=== PATIENT | female | born 1965 | race Caucasian/White ===

== ENCOUNTER → 2017-10-30 | Outpatient (CLI) | payer OTHER, SELFPAY | PROVIDERS: Family Provider Nurse Practitioner Family; Visit Provider Orthopaedic Surgery | DX: S52.202K Unspecified fracture of shaft of left ulna, subsequent encounter for closed fracture with nonunion (principal) | CPT/HCPCS: 73090 ==

== ENCOUNTER → 2017-12-04 13:19 | Outpatient (CLI) | payer OTHER, SELFPAY ==
--- NOTE | 2017-12-04 13:28 | MM_ITS ---
MM Dig screening mamm BI w/CAD CAD Screening ORDERING PHYSICIAN : Ganga Pires MD PATIENT AGE: 52 years GENDER: Female COMPARISON: Previous mammograms: December 2014, July 2012, December 2010, April 22, 2008 film screen mammogram INDICATION: Routine screening mammogram. Patient takes estrogen. No new complaints Family history. Grandmother with breast cancer age 80 TECHNIQUE: Standard CC and MLO images were obtained. R2 CAD reviewed. Additional axillary cc views both breast included . Areas of mild asymmetry appears stable with no significant new findings overall. RIGHT BREAST:Area of density seen on the initial cc view dissipates on subsequent axillary cc view and appears overall stable since radius studies. . LEFT BREAST:Mild asymmetry left breast.. No significant change and overall appears stable in all 3 views of the left breast are reviewed in conjunction with prior studies IMPRESSION: Stable bilateral mammogram . Moderate density breast with mild asymmetry BI-RADS Category: 2 Benign Finding(s) RECOMMENDED FOLLOW-UP: 1YR - 1 YEAR FOLLOW-UP (A letter has been sent to the patient regarding results of the study.) .
--- NOTE | 2017-12-04 13:28 | XR_ITS ---
XR forearm LT 2V HISTORY: Follow-up fracture ITS.REASON: Status post LEFT forearm ORIF ORDERING PHYSICIAN: Ganga Pires MD PATIENT AGE: 52 years COMPARISON: 10/30/2017 FINDINGS: 3 views show a bone plate stabilizing a midshaft ulnar fracture with good alignment. Fracture line is still visible anteriorly. There is overlying callus formation. IMPRESSION: Overall no change status post ORIF ulnar fracture with good alignment
== END ==
PROVIDERS: Family Provider Nurse Practitioner Family; PCP Emergency Medicine; Referring Provider Orthopaedic Surgery; Visit Provider Obstetrics & Gynecology
DX: Z12.31 Encounter for screening mammogram for malignant neoplasm of breast (principal); Z47.89 Encounter for other orthopedic aftercare
CPT/HCPCS: 73090; 77067

== ENCOUNTER → 2018-02-10 13:03 | Outpatient (CLI) | payer OTHER, SELFPAY ==
--- NOTE | 2018-02-10 13:07 | XR_ITS ---
XR forearm LT 2V HISTORY: Follow-up surgery ITS.REASON: Post op from 09/22/17 ORDERING PHYSICIAN: Gaurav García MD PATIENT AGE: 52 years COMPARISON: 12/04/2017 FINDINGS: There remains a bone plate over the mid shaft of the ulna with callus formation at the fracture site consistent with healing with normal alignment. Fracture line appears somewhat less apparent compared to the previous exam. IMPRESSION: Healing midshaft ulnar fracture status post ORIF
== END ==
PROVIDERS: Visit Provider Orthopaedic Surgery
DX: Z47.89 Encounter for other orthopedic aftercare (principal)
CPT/HCPCS: 73090

== ENCOUNTER → 2018-02-10 14:34 | Outpatient (CLI) | payer OTHER, SELFPAY ==
[2018-02-10 15:31] LABS: Free Thyroxine Index 3.4 ug/dL (5.93-13.13); T4 (Thyroxine) 10.6 ug/dl (4.7-13.3); Thyroid Stimulating Hormone 2.68 uIU/ml (0.358-3.740); Triiodothryronine (T3) Uptake 32 % (31-39)
== END ==
PROVIDERS: Visit Provider Obstetrics & Gynecology
DX: E05.90 Thyrotoxicosis, unspecified without thyrotoxic crisis or storm (principal)
CPT/HCPCS: 36415; 84436; 84443; 84479

== ENCOUNTER → 2018-02-12 14:09 | Outpatient (CLI) | payer OTHER, SELFPAY ==
[2018-02-12 14:46] LABS: Basophils # 0.1 K/mm3 (0-0.2); Basophils % 0.5 % (0.1-2.0); Eosinophils # 0.3 K/mm3 (0.0-0.4); Eosinophils % 2.7 % (0.1-12.0); Hematocrit 39.1 % (37.0-47.0); Hemoglobin 12.6 g/dL (12.2-16.2); Lymphocytes # 2.8 K/mm3 (0.7-4.5); Mean Corpuscular HGB Conc 32.1 g/dL (31.8-35.4); Mean Corpuscular Volume 93.6 fl (81-99); Monocytes # 0.5 K/mm3 (0.1-1.0); Monocytes % 4.3 % (1.7-9.3); Neutrophils % 68.4 % (37.0-80.0); Platelet Count 380 K/mm3 (142-424); Red Blood Count 4.18 M/mm3 (4.20-5.40); Red Cell Distribution Width 13.7 % (11.5-17.5); White Blood Count 11.7 K/mm3 (4.8-10.8)
[2018-02-12 15:31] LABS: C-Reactive Protein 0.9 mg/L (0.0-0.9); Free Thyroxine Index 2.9 ug/dL (5.93-13.13); T4 (Thyroxine) 9.4 ug/dl (4.7-13.3); Thyroid Stimulating Hormone 1.73 uIU/ml (0.358-3.740); Triiodothryronine (T3) Uptake 31 % (31-39)
[2018-02-12 15:48] LABS: Erythrocyte Sedimentation Rate 10 mm/hr (0-30)
[2018-02-14 19:03] LABS: Parathyroid Hormone Intact 28 pg/mL (15-65); Vitamin D 25 Hydroxy 31.8 ng/mL (30.0-100.0)
== END ==
PROVIDERS: Visit Provider Orthopaedic Surgery
DX: Z47.89 Encounter for other orthopedic aftercare (principal)
CPT/HCPCS: 36415; 82652; 83970; 84436; 84443; 84479; 85025; 85651; 86140

== ENCOUNTER → 2018-03-12 13:01 | Outpatient (CLI) | payer OTHER, SELFPAY ==
--- NOTE | 2018-03-12 13:03 | XR_ITS ---
XR DEXA axial skeleton HISTORY: ITS.REASON: screening ORDERING PHYSICIAN: Ganga Pires MD PATIENT AGE: 52 years FINDINGS: The BMD measured at the Right femoral neck is 1.200 g/cm squared with a T score of 1.2. This is considered normal according to the World Health Organization criteria. Fracture risk is low. Treatment is advised. The L1 L4 density has a T score of 1.3 which is within normal limits. IMPRESSION: Normal bone density. Recommend follow up exam march 2020
== END ==
PROVIDERS: Family Provider Nurse Practitioner Family; Visit Provider Obstetrics & Gynecology
DX: Z78.0 Asymptomatic menopausal state (principal); Z13.820 Encounter for screening for osteoporosis
CPT/HCPCS: 77080

== ENCOUNTER → 2018-04-03 09:57 | Outpatient (CLI) | payer OTHER, SELFPAY ==
--- NOTE | 2018-04-03 10:01 | XR_ITS ---
XR forearm LT 2V HISTORY: Follow-up fracture/ORIF ITS.REASON: S/P ORIF LT Forearm ORDERING PHYSICIAN: Gaurav García MD PATIENT AGE: 52 years COMPARISON: 02/10/2018 FINDINGS: There is a bone plate once again noted stabilizing a midshaft ulnar fracture with overlying callus formation and good alignment with no evidence of displacement. IMPRESSION: No change healing nondisplaced mid shaft ulnar fracture status post ORIF
== END ==
PROVIDERS: PCP Emergency Medicine; Visit Provider Orthopaedic Surgery
DX: S52.202G Unspecified fracture of shaft of left ulna, subsequent encounter for closed fracture with delayed healing (principal)
CPT/HCPCS: 73090

== ENCOUNTER → 2018-10-09 11:05 | Outpatient (CLI) | payer OTHER, SELFPAY ==
--- NOTE | 2018-10-09 11:08 | MR_ITS ---
MR knee LT wo con HISTORY: Medial left knee pain, twisting injury with pain and instability ITS.REASON: LT KNEE PAIN ORDERING PHYSICIAN: Kusum Miller MD PATIENT AGE: 52 years Comparison: 10/04/2018 TECHNIQUE: Standard multiplanar multiecho sequences are performed without contrast. FINDINGS: The cruciate ligaments are intact. The collateral ligaments, patellar tendon, and quadriceps tendon have an unremarkable appearance. There is mild generalized motion artifact on the sagittal images especially along the medial aspect of the knee limiting the diagnostic accuracy of the exam. Abnormal oblique signal intensity involves the posterior horn of the medial meniscus with linear oblique increased T2 signal consistent with a horizontal tear. This may extend into the body of the medial meniscus difficult to evaluate due to motion on the coronal images. The lateral meniscus has an unremarkable appearance. There are osteoarthritic changes of the medial compartment and patellofemoral joint with a small knee joint effusion. The patellar cartilage is preserved. Small area of increased T2 signal involves the medial aspect and proximal aspect of the medial tibial plateau consistent with small area of bone marrow edema. There is some subcutaneous edema along the medial aspect of the knee and in the prepatellar region IMPRESSION: 1. Limited study secondary to motion artifact. 2. Nondisplaced horizontal tear involves posterior horn of the medial meniscus. 3. Small knee joint effusion with osteoarthritis and small focus of bone marrow edema involving the medial and proximal tibia.
== END ==
PROVIDERS: Visit Provider Orthopaedic Surgery
DX: M25.562 Pain in left knee (principal)
CPT/HCPCS: 73721

== ENCOUNTER 2018-10-20 13:06 | Outpatient (RCR) | payer OTHER, SELFPAY | END 2018-10-20 13:10 | disposition home or self-care (01) | LOC: PT 13:06 | PROVIDERS: Visit Provider Orthopaedic Surgery | DX: M17.12 Unilateral primary osteoarthritis, left knee (principal) | CPT/HCPCS: 97163 ==

== ENCOUNTER → 2019-06-10 16:26 | Outpatient (CLI) | payer SELFPAY | PROVIDERS: Visit Provider Obstetrics & Gynecology | DX: Z12.31 Encounter for screening mammogram for malignant neoplasm of breast (principal) | CPT/HCPCS: 77067 ==

== ENCOUNTER 2020-05-15 10:46 | Emergency (ER) | payer MEDICAID, SELFPAY ==
[2020-05-15 10:47] VITALS: BP 120/85; PULSE 91; RESP 16; TEMP 36.8; O2SAT 98; BMI 31.8
--- NOTE | 2020-05-15 10:50 | HMH.EDGENADL ---
ED Disposition Clinical Impression: Urinary tract infection Qualifiers: Urinary tract infection type: acute cystitis Hematuria presence: without hematuria Qualified Code(s): N30.00 - Acute cystitis without hematuria Disposition: Home, Self-Care Condition on Discharge: Good Instructions: DI for Urinary Tract Infection (UTI), DI for Urinary Tract Infection in Children Additional Instructions: Take antibiotics as prescribed. Follow-up with your PCP in the next 2 to 3 days. If you have any fever, back pain, vomiting, or any other new, changing, worsening, or concerning symptoms, come back to the emergency department immediately. Prescriptions: Cefdinir [Omnicef 300mg Capsule] 300 mg PO BID 10 Days #20 cap Transmission Status: Received by [facility] [employer] Referrals: Lilliana Nieto [Primary Care Provider] - Time of Disposition: 12:20 - Critical Care Critical Care Time: No Attestation: On , the high probability of a clinically significant, sudden or life threatening deterioration of the following system(s) required my full and direct attention, intervention and personal management. The time I documented below is in addition to time spent performing reported procedures but includes the following listed in this critical care notation. Medical Decision Making - Medical Records Medical records reviewed: Yes: I reviewed the patient's medical records. MR Comment: 54-year-old female with a history of UTIs presents emergency department with frequency, urgency and dysuria. She arrives the ED nontoxic, hemodynamically stable, and looks well with reassuring vital signs. She has no concerning symptoms of pyelonephritis or sepsis. Tolerating p.o., exam is completely unremarkable. Likely simple cystitis. Will get a UA and reassess. On reassessment, patient remains well. She has nitrates in her urine as well as leukocyte esterase, microbiology has not yet resulted, but she likely has UTI given this and her symptoms. Patient would like to be discharged and does not want to wait on the completed results of her urinalysis. She has a prior microbiology showing E. coli. We will treat her with cefdinir and asked that she follow-up with her PCP in the next 2 days. Given strict return precautions and discharge instructions and verbalizes an understanding and agreement to the plan. Safe to discharge. - Dino Inquiry Pt receiving controlled substance: No Vital Signs: 05/15/20 10:47 05/15/20 12:27 Temperature 98.3 F 98 F Temperature Source Oral Oral Pulse Rate 78 Pulse Rate [Left Radial] 91 H Respiratory Rate 16 16 Blood Pressure 112/65 Blood Pressure [Right Arm] 120/85 Blood Pressure Mean [Right Arm] 96 Blood Pressure Position Sitting Blood Pressure Position [Right Arm] Sitting 02 Sat by Pulse Oximetry 98 Oxygen Delivery Method Room Air Room Air - Lab Data Lab Results 05/15/20 11:10: Urine Color Dk yellow, Urine Appearance Clear, Urine pH 6.5, Ur Specific [place] 1.015, Urine Protein Negative, Urine Glucose (UA) Negative, Urine Ketones Negative, Urine Blood Negative, Urine Nitrate Positive, Urine Bilirubin Negative, Urine Urobilinogen 1.0, Ur Leukocyte Esterase Trace, Urine RBC 10-20, Urine WBC 10-20, Ur Squamous Epith Cells 10-20, Amorphous Sediment 1+, Urine Bacteria 1+ Orders (Tests/Meds): ORDERS Category Date Time Status Urine Culture Stat Micro 05/15/20 11:10 Received General Adult HPI - General Stated complaint: poss uti Time Seen by Provider: 05/15/20 10:50 Source of Information: Patient - History of Present Illness HPI narrative: 54-year-old female presents emergency department with dysuria. She has had urgency and frequency for the last few days. Was trying to take Azo and cranberry juice at home and continued to have symptoms and when to come in today to be evaluated. She denies any nausea or vomiting. She denies fever chills. No back pain, chest pain. No diarrhea. Nothing makes eran
[2020-05-15 11:51] LABS: Microscopic, Urine URINE MICROSCOPIC (MICROSCOPIC)
[2020-05-15 11:52] LABS: Appearance,Urine CLEAR (Clear); Bilirubin,Urine Negative (Negative); Blood, Urine Negative (Negative); Color,Urine DK YELLOW (Yellow); Glucose,Urine (UA) Negative (Negative); Ketones,Urine Negative (Negative); Leukocyte Esterase,Urine TRACE (Negative); Nitrate,Urine POSITIVE (Negative); PH,Urine 6.5 (5.0-8.5); Protein,Urine Negative (Negative); Specific Gravity, Urine 1.015 (1.005-1.030)
[2020-05-15 12:22] LABS: Amorphous Sediment,Urine 1+ /lpf; Bacteria,Urine 1+ /lpf
[2020-05-15 12:27] VITALS: BP 112/65; PULSE 78; RESP 16; TEMP 36.6; O2SAT 98
== END 2020-05-15 12:28 | disposition home or self-care (01) ==
PROVIDERS: Emergency Provider Emergency Medicine; PCP Nurse Practitioner Acute Care
DX: N30.00 Acute cystitis without hematuria (principal); F41.8 Other specified anxiety disorders; I10 Essential (primary) hypertension; Z88.0 Allergy status to penicillin; F17.210 Nicotine dependence, cigarettes, uncomplicated
CPT/HCPCS: 81001; 87086; 87088; 87186; 99282

== ENCOUNTER → 2020-06-12 09:57 | Outpatient (CLI) | payer MEDICAID, SELFPAY ==
--- NOTE | 2020-06-12 09:57 | MM_ITS ---
PROCEDURE: MM DIG SCREENING MAMM BI W/CAD Digital Breast Tomosynthesis Included CLINICAL INDICATION: Routine Screening Mammogram There is a history of breast cancer in patient's mother diagnosed after menopause and the patient's maternal grandmother. The patient currently is on Premarin and estrogen. COMPARISON: MG DMSB DIG MAMM-SCREEN GRACE from 12/09/2014 MG [facility]BI MM Dig screening mamm BI w/CAD from 12/04/2017 MG DIG MAMM-SCREEN GRACE from 06/10/2019 TECHNIQUE: Standard CC and MLO images and 3D Tomosynthesis was obtained. R2 CAD reviewed. FINDINGS: Moderate diffuse fibroglandular densities are seen in the central portions of both breast. Again noted is slightly increased glandular elements upper-outer quadrant right breast. There is a benign-appearing calcification right breast. There is no new or suspicious lesion in either breast and no suspicious microcalcifications. IMPRESSION: Mild to moderate breast density with no suspicious lesions seen BI-RAD Category: 2 Benign Finding(s) FOLLOW-UP: 1YR 1 Year Follow-up (A letter has been sent to the patient regarding results of the study.) Dictated Dr. David Vivas MD 06/13/2020 10:18 Dr. David Arora MD in [place] 06/13/2020 10:18
[2020-06-14 19:43] LABS: HIV Screen 4th Generation wRfx Non Reactive (Non Reactive); Hepatitis B Surface Antigen Negative (Negative); Hepatitis C Antibody <0.1 s/co ratio (0.0-0.9)
[2020-07-06 09:33] LABS: Rapid Plasma Reagin Ab Titer Non Reactive
== END ==
PROVIDERS: PCP Nurse Practitioner Acute Care; Visit Provider Obstetrics & Gynecology
DX: Z12.31 Encounter for screening mammogram for malignant neoplasm of breast (principal); Z01.419 Encounter for gynecological examination (general) (routine) without abnormal findings; Z90.710 Acquired absence of both cervix and uterus; Z80.3 Family history of malignant neoplasm of breast; Z20.2 Contact with and (suspected) exposure to infections with a predominantly sexual mode of transmission; B97.7 Papillomavirus as the cause of diseases classified elsewhere; R39.89 Other symptoms and signs involving the genitourinary system
CPT/HCPCS: 36415; 77063; 77067; 86592; 86703; 87340; 87380; G0432

== ENCOUNTER → 2020-06-12 14:47 | Outpatient (CLI) | payer MEDICAID, SELFPAY | PROVIDERS: Visit Provider Obstetrics & Gynecology | DX: R39.89 Other symptoms and signs involving the genitourinary system (principal); Z20.2 Contact with and (suspected) exposure to infections with a predominantly sexual mode of transmission | CPT/HCPCS: 36415; 86592; 86703; 87340; 87380; G0432 ==

== ENCOUNTER 2020-11-21 17:03 | Emergency (ER) | payer MEDICAID, SELFPAY ==
[2020-11-21 17:13] VITALS: BP 165/73; PULSE 96; RESP 16; TEMP 36.8; O2SAT 98; BMI 29.0
--- NOTE | 2020-11-21 18:10 | XR_ITS ---
PROCEDURE: XR SHOULDER RT MIN 2V CLINICAL INDICATION: pain Bilateral shoulder pain COMPARISON: CR XR SHOULDER LT MIN 2V from 11/21/2020 FINDINGS: No fracture or dislocation. No lytic or blastic change. There is normal mineralization. There are mild osteoarthritic changes the acromioclavicular joint glenohumeral joint with mild subacromial stenosis. Other findings:None. IMPRESSION: Mild osteoarthritis of the AC joint and glenohumeral joint with mild subacromial stenosis Dictated by: Rivera Tavares MD 11/22/2020 06:43 Rivera Tavares MD in [place] 11/22/2020 06:43
--- NOTE | 2020-11-21 18:10 | XR_ITS ---
PROCEDURE: XR SHOULDER LT MIN 2V CLINICAL INDICATION: pain COMPARISON: No exams were available for comparison FINDINGS: No fracture or dislocation. No lytic or blastic change. There is normal mineralization. Mild osteoarthritis of the AC joint and glenohumeral joint with subacromial stenosis. Other findings:None. IMPRESSION: Osteoarthritis with subacromial stenosis Dictated by: Rivera Tavares MD 11/22/2020 06:44 Rivera Tavares MD in [place] 11/22/2020 06:44
--- NOTE | 2020-11-21 18:24 | HMH.EDGENADL ---
ED Disposition Clinical Impression: Arthritis, multiple joint involvement, Lyme arthritis Disposition: Home, Self-Care Condition on Discharge: Good Instructions: DI for Lyme Disease Prescriptions: Doxycycline Hyclate [Doxycycline 100mg Capsule] 100 mg PO Q12 21 Days #42 cap Transmission Status: Pending to [facility] Referrals: Lilliana Nieto [Primary Care Provider] - Dilshad Sheffield MD [Staff Physician] - - Critical Care Critical Care Time: No Attestation: On 11/21/20, the high probability of a clinically significant, sudden or life threatening deterioration of the following system(s) required my full and direct attention, intervention and personal management. The time I documented below is in addition to time spent performing reported procedures but includes the following listed in this critical care notation. Medical Decision Making - Medical Records Medical records reviewed: Yes: I reviewed the patient's medical records. - Dino Inquiry Pt receiving controlled substance: No Vital Signs: 11/21/20 17:13 11/21/20 18:55 Temperature 98.2 F Temperature Source Oral Pulse Rate [Right Brachial] 96 H 80 Respiratory Rate 16 20 Blood Pressure [Right Arm] 165/73 H 150/61 H Blood Pressure Mean [Right Arm] 103 90 Blood Pressure Source [Right Arm] Automatic Cuff Blood Pressure Position [Right Arm] Sitting 02 Sat by Pulse Oximetry 98 97 Oxygen Delivery Method Room Air - Lab Data Lab Results 11/21/20 18:44: WBC 14.5 H, RBC 4.92, Hgb 15.9, Hct 46.9, MCV 95.2, MCH 32.3 H, MCHC 33.9, RDW 13.2, Plt Count 386, MPV 8.4, Neut % (Auto) 72.9, Lymph % (Auto) 20.1, [place] % (Auto) 4.7, Eos % (Auto) 1.9, Baso % (Auto) 0.4, Neut # (Auto) 10.6 H, Lymph # (Auto) 2.9, [place] # (Auto) 0.7, Eos # (Auto) 0.3, Baso # (Auto) 0.1 11/21/20 18:44: Sodium 140, Potassium 3.9, Chloride 102, Carbon Dioxide 30, Anion Gap 11.9, BUN 15, Creatinine 1.00, Estimated Creat Clear 76, Estimated GFR 58 L, Est GFR ( Amer) 70, Glucose 103 H, Calcium 10.1, Total Bilirubin 0.4, AST 33, ALT 30, Alkaline Phosphatase 68, Troponin I < 0.01, Total Protein 8.0, Albumin 4.8, Globulin 3.2, Albumin/Globulin Ratio 1.5 Result diagrams: 11/21/20 18:44 11/21/20 18:44 Orders (Tests/Meds): ED MEDICATIONS Discontinued Medications Generic Name Dose Route Start Last Admin Trade Name Renee PRN Reason Stop Dose Admin Ketorolac Tromethamine 30 mg 11/21/20 18:10 11/21/20 18:33 Ketorolac 30mg/Ml Vial IV 11/21/20 18:11 30 mg ONCE ONE Administration ORDERS Category Date Time Status XR shoulder LT min 2V Stat Exams 11/21/20 18:10 Taken XR shoulder RT min 2V Stat Exams 11/21/20 18:10 Taken Lyme Ab/Line Blot Reflex Stat Lab 11/21/20 19:20 Received Troponin I Q3H Lab 11/21/20 21:15 Ordered Troponin I Q3H Lab 11/22/20 00:15 Ordered - Radiology Data #1 Image(s): Shoulder Image Reviewed: Yes I reviewed the patient's radiology results, Yes I reviewed the patient's radiology image Preliminary Findings: Normal/NAD, No Fracture Seen - Reevaluation(s) Time: 19:36 Reevaluation #1: On reevaluation, the patient is feeling better. I do believe her symptoms are consistent with chronic Lyme disease. I did explain to the patient that we will obtain studies however they will take some time. She needs to return to medical records to obtain her results, however given the presentation, I do believe she will benefit from prolonged duration antibiotics. Patient needs to follow-up with PCP. Given strict return precautions. Verbalized understanding. Medical Decision Narrative: 55-year-old female presenting with bilateral shoulder pain. Symptoms are consistent with arthritis. It was concerning that it appears she had a tick bite and rash many months ago. Patient did not obtain medical evaluation at the time. I did explain to the patient that I will obtain Lyme disease titers, however these are nonemergent tests and she will li
[2020-11-21 18:55] VITALS: BP 150/61; PULSE 80; RESP 20; O2SAT 97
[2020-11-21 18:55] LABS: Basophils # 0.1 K/mm3 (0-0.2); Basophils % 0.4 % (0.1-2.0); Eosinophils # 0.3 K/mm3 (0.0-0.4); Eosinophils % 1.9 % (0.1-12.0); Hematocrit 46.9 % (37.0-47.0); Hemoglobin 15.9 g/dL (12.2-16.2); Lymphocytes # 2.9 K/mm3 (0.7-4.5); Lymphocytes % 20.1 % (10-50); Mean Corpuscular HGB Conc 33.9 g/dL (31.8-35.4); Mean Corpuscular Hemoglobin 32.3 pg (27.0-31.2); Mean Corpuscular Volume 95.2 fl (81-99); Mean Platelet Volume 8.4 fl (7.4-10.4); Monocytes # 0.7 K/mm3 (0.1-1.0); Monocytes % 4.7 % (1.7-9.3); Neutrophils # 10.6 K/mm3 (1.8-7.8); Neutrophils % 72.9 % (37.0-80.0); Platelet Count 386 K/mm3 (142-424); Red Blood Count 4.92 M/mm3 (4.20-5.40); Red Cell Distribution Width 13.2 % (11.5-17.5); White Blood Count 14.5 K/mm3 (4.8-10.8)
--- NOTE | 2020-11-21 19:23 | PC.NURSE ---
yellow tops obtained for lab for lyme blot test
[2020-11-21 19:35] LABS: Chloride 102 mmol/L (98-107); Sodium 140 mmol/L (136-145)
[2020-11-21 19:36] LABS: Potassium 3.9 mmoL/L (3.5-5.1)
[2020-11-21 19:38] LABS: Alanine Aminotransferase 30 U/L (12-78); Alkaline Phosphatase 68 U/L (38-126); Aspartate Amino Transferase 33 U/L (14-36); Bilirubin,Total 0.4 mg/dl (0.2-1.3); Blood Urea Nitrogen 15 mg/dl (7-17); Creatinine Clearance Estimated 76 mL/min (50-200); Estimated Glomerular Filt Rate 58 ml/min (>60); GFR (African American) 70 ML/MIN (>60)
[2020-11-21 19:39] LABS: Albumin Level 4.8 g/dl (3.5-5.0); Albumin/Globulin Ratio 1.5 (1.1-1.8); Anion Gap 11.9 mEq/L (5-15); Calcium 10.1 mg/dl (8.4-10.2); Carbon Dioxide 30 mmol/L (22.0-30.0); Globulin 3.2 g/dL (1.3-3.2); Glucose 103 mg/dl (74-100)
[2020-11-21 19:53] LABS: Troponin I < 0.01 ng/ml (0.00-0.034)
[2020-11-21 19:59] VITALS: BP 112/75; PULSE 73; RESP 16; TEMP 36.7; O2SAT 98
== END 2020-11-21 20:01 | disposition home or self-care (01) ==
PROVIDERS: Emergency Provider Emergency Medicine; PCP Nurse Practitioner Acute Care
DX: M13.812 Other specified arthritis, left shoulder (principal); M13.811 Other specified arthritis, right shoulder; A69.23 Arthritis due to Lyme disease; F41.8 Other specified anxiety disorders; I10 Essential (primary) hypertension; F17.210 Nicotine dependence, cigarettes, uncomplicated; Z79.899 Other long term (current) drug therapy
CPT/HCPCS: 73030; 80053; 84484; 85025; 86618; 96374; 99283

== ENCOUNTER 2020-11-22 05:32 | Emergency (ER) | payer MEDICAID, SELFPAY ==
[2020-11-22 05:39] VITALS: BP 165/78; PULSE 81; RESP 15; TEMP 36.6; O2SAT 98; BMI 29.0
--- NOTE | 2020-11-22 06:23 | HMH.EDSKAF ---
ED Disposition Clinical Impression: Urticaria Disposition: Home, Self-Care Condition on Discharge: Good Instructions: DI for Hives Additional Instructions: use meds and see pcp for follow up Prescriptions: predniSONE [Prednisone 20mg Tab] 20 mg PO BID #10 tab Transmission Status: Pending to [email or web address] Referrals: Lilliana Nieto [Primary Care Provider] - - Critical Care Critical Care Time: No Attestation: On 11/22/20, the high probability of a clinically significant, sudden or life threatening deterioration of the following system(s) required my full and direct attention, intervention and personal management. The time I documented below is in addition to time spent performing reported procedures but includes the following listed in this critical care notation. Medical Decision Making - Medical Records Medical records reviewed: Yes: I reviewed the patient's medical records. - Dino Inquiry Pt receiving controlled substance: No Vital Signs: 11/22/20 05:39 Temperature 97.8 F Temperature Source Temporal Artery Scan Pulse Rate [Right Brachial] 81 Respiratory Rate 15 Blood Pressure [Right Arm] 165/78 H Blood Pressure Mean [Right Arm] 107 Blood Pressure Source [Right Arm] Automatic Cuff Blood Pressure Position [Right Arm] Sitting 02 Sat by Pulse Oximetry 98 Oxygen Delivery Method Room Air Orders (Tests/Meds): ED MEDICATIONS Generic Name Dose Route Start Last Admin Trade Name Freq PRN Reason Stop Dose Admin Sodium Chloride 8 ml 11/22/20 05:43 Sodium Chloride 0.9% 10ml Vial IV 12/22/20 05:42 NEEDED PRN dilute pepcid Discontinued Medications Generic Name Dose Route Start Last Admin Trade Name Freq PRN Reason Stop Dose Admin Famotidine 20 mg 11/22/20 05:43 11/22/20 05:50 Famotidine 20mg/2ml Vial IV 11/22/20 05:44 20 mg ONCE ONE Administration Methylprednisolone Sodium Succinate 125 mg 11/22/20 05:43 11/22/20 05:50 Methylprednisolone Sod Succ 125mg Vial IV 11/22/20 05:44 125 mg ONCE ONE Administration - Reevaluation(s) Time: 06:34 Reevaluation #1: improved Skin/Abscess/FB HPI - General Chief complaint: Allergic Reaction Stated complaint: Welps on arms and hands Time Seen by Provider: 11/22/20 06:00 Mode of Arrival: Family Vehicle Source of Information: Patient, Spouse, Medical Record Limitations: No Limitations Description of Symptoms (Recalled from ER Triage Doc. by RN): small reddened area to right upper arm, thinks she is breaking out - History of Present Illness HPI narrative: pt with reported hives with no resp distress - seen in the ed earlier with arthritis MD complaint: rash Onset (ago): hour(s) Tetanus up to date: unsure Location: generalized Severity: moderate Associated symptoms: denies other symptoms Treatments prior to arrival: other (nonsteroid ) - Related Data Home Medications Medication Instructions Recorded Confirmed thyroid (pork) 30 mg tablet 30 mg PO DAILY tab 06/12/20 Previous Rx's Medication Instructions Recorded Doxycycline Hyclate [Doxycycline 100 mg PO Q12 21 Days #42 cap 11/21/20 100mg Capsule] predniSONE [Prednisone 20mg 20 mg PO BID #10 tab 11/22/20 Tab] Allergies Allergy/AdvReac Type Severity Reaction Status Date / Time droperidol [From INAPSINE] Allergy Intermediate Respiratory Verified 11/21/20 17:20 Issues diphenhydramine Allergy Mild Verified 11/21/20 17:20 [From BENADRYL] cyclobenzaprine Allergy Unknown UNKNOWN Verified 11/21/20 17:20 [From FLEXERIL] NUTS (FOOD) Allergy Mild SWELLING Uncoded 06/12/20 14:12 [facility] History - Hepatitis A Screen Drug use history?: No High risk sexual behaviors?: No History of sexually transmitted infection?: No Currently employed?: No Childcare worker?: No Do you have indoor plumbing?: Yes Do you have electricity?: Yes Attestation statement:: This patient has been screened for Hepatiti
[2020-11-22 06:48] VITALS: BP 135/72; PULSE 78; RESP 16; TEMP 36.7; O2SAT 99
== END 2020-11-22 06:52 | disposition home or self-care (01) ==
PROVIDERS: Emergency Provider Emergency Medicine; PCP Nurse Practitioner Acute Care
DX: L50.0 Allergic urticaria (principal); F41.8 Other specified anxiety disorders; I10 Essential (primary) hypertension; F17.210 Nicotine dependence, cigarettes, uncomplicated; Z79.899 Other long term (current) drug therapy
CPT/HCPCS: 96375; 99281

== ENCOUNTER 2020-12-23 10:07 | Emergency (ER) | payer MEDICAID, SELFPAY ==
[2020-12-23 10:09] VITALS: BP 172/88; PULSE 87; RESP 20; TEMP 36.6; O2SAT 98; BMI 30.2
--- NOTE | 2020-12-23 11:00 | HMH.EDGENADL ---
ED Disposition Clinical Impression: Urticaria Disposition: Home, Self-Care Condition on Discharge: Good Instructions: DI for Hives Prescriptions: hydrOXYzine HCL [Hydroxyzine HCl] 10 mg PO BID #30 tab Transmission Status: Pending to [facility] Referrals: Lilliana Nieto [Primary Care Provider] - - Critical Care Critical Care Time: No Attestation: On 12/23/20, the high probability of a clinically significant, sudden or life threatening deterioration of the following system(s) required my full and direct attention, intervention and personal management. The time I documented below is in addition to time spent performing reported procedures but includes the following listed in this critical care notation. Medical Decision Making - Medical Records Medical records reviewed: Yes: I reviewed the patient's medical records. - Dino Inquiry Pt receiving controlled substance: No Vital Signs: 12/23/20 10:09 Temperature 97.8 F Temperature Source Oral Pulse Rate [Left Radial] 87 Respiratory Rate 20 Blood Pressure [Right Arm] 172/88 H Blood Pressure Mean [Right Arm] 116 Blood Pressure Source [Right Arm] Automatic Cuff Blood Pressure Position [Right Arm] Sitting 02 Sat by Pulse Oximetry 98 Oxygen Delivery Method Room Air Orders (Tests/Meds): ED MEDICATIONS Discontinued Medications Generic Name Dose Route Start Last Admin Trade Name Freq PRN Reason Stop Dose Admin Hydroxyzine HCl 10 mg 12/23/20 10:42 12/23/20 10:54 Hydroxyzine Hcl 10mg/5ml Udc PO 12/23/20 10:43 10 mg ONCE ONE Administration Ketorolac Tromethamine 30 mg 12/23/20 10:42 12/23/20 10:47 Ketorolac 30mg/Ml Vial IM 12/23/20 10:43 30 mg ONCE ONE Administration - Reevaluation(s) Time: 11:02 Reevaluation #1: On reevaluation, the patient is feeling better. No further swelling. Patient be discharged with a short course of antihistamines. Patient does state that she had a listed allergy of Benadryl, however she has taken it before without any complications. Patient given strict return precautions. Verbalized understanding. Medical Decision Narrative: 55-year-old female presented to the emergency department with a rash. Findings are consistent with urticaria. Patient does not have any obvious contacts that she knows of. There is no evidence of anaphylaxis or impending airway. Patient be treated symptomatically. General Adult HPI - General Chief complaint: Skin/Abscess/Foreign Body Stated complaint: swelling/burning on back of neck Time Seen by Provider: 12/23/20 10:15 Mode of Arrival: Ambulatory Limitations: No Limitations Description of Symptoms (Recalled from ER Triage Doc. by RN): Pt states that two months ago she started breaking out with a rash. Concerned today with a raised red area on the back of her neck with pain and a few small spots t/o her abdomen. Red palms. Denies any itchy or trouble swallowing at this time. - History of Present Illness HPI narrative: 55-year-old female presented to the emergency department with a rash. Patient has been dealing with the symptoms for quite some time. She has had some urticarial type rashes on her arms, abdomen, back and neck. She states that she does not know any obvious contact for these. She tried taking some steroids, however and states that they did help, but they did keep her up at night so she discontinued taking them. She is not having any associated shortness of breath or chest pain. No abdominal pain or vomiting. No headache or change in vision. No focal weakness. No fevers or chills. - Related Data Home Medications Medication Instructions Recorded Confirmed thyroid (pork) 30 mg tablet 30 mg PO DAILY tab 06/12/20 Previous Rx's Medication Instructions Recorded Doxycycline Hyclate [Doxycycline 100 mg PO Q12 21 Days #42 cap 11/21/20 100mg Capsule] predniSONE [Prednisone 20mg 20 mg PO BID #10 tab 11/22/20 Tab]
[2020-12-23 11:20] VITALS: BP 172/88; PULSE 87; RESP 20; TEMP 36.6; O2SAT 98
== END 2020-12-23 11:20 | disposition home or self-care (01) ==
PROVIDERS: Emergency Provider Emergency Medicine; PCP Nurse Practitioner Acute Care
DX: L50.9 Urticaria, unspecified (principal); I10 Essential (primary) hypertension; F41.8 Other specified anxiety disorders; F17.210 Nicotine dependence, cigarettes, uncomplicated; Z79.899 Other long term (current) drug therapy
CPT/HCPCS: 96372; 99281

== ENCOUNTER 2021-02-01 13:11 | Emergency (ER) | payer MEDICAID, SELFPAY ==
[2021-02-01 13:30] VITALS: BP 135/80; PULSE 77; RESP 18; O2SAT 98
[2021-02-01 13:31] VITALS: BP 135/80; PULSE 75; RESP 18; TEMP 37.2; O2SAT 98; BMI 31.1
--- NOTE | 2021-02-01 13:37 | HMH.EDEYEP ---
ED Disposition Clinical Impression: Bacterial conjunctivitis Hordeolum externum (stye) Qualifiers: Laterality: left Eyelid: upper Qualified Code(s): H00.014 - Hordeolum externum left upper eyelid Disposition: Home, Self-Care Condition on Discharge: Good Instructions: DI for Conjunctivitis Prescriptions: Erythromycin Base [Erythromycin 1gm opth ointment] 1 film EYE-LEFT TID 7 Days #1 terry Transmission Status: Pending to [facility] Referrals: Lilliana Nieto [Primary Care Provider] - - Critical Care Critical Care Time: No Attestation: On 02/01/21, the high probability of a clinically significant, sudden or life threatening deterioration of the following system(s) required my full and direct attention, intervention and personal management. The time I documented below is in addition to time spent performing reported procedures but includes the following listed in this critical care notation. Medical Decision Making - Medical Records Medical records reviewed: Yes: I reviewed the patient's medical records. - Dino Inquiry Pt receiving controlled substance: No Vital Signs: 02/01/21 13:31 Temperature 98.9 F Temperature Source Oral Pulse Rate [Radial] 75 Respiratory Rate 18 Blood Pressure [Right Arm] 135/80 Blood Pressure Mean [Right Arm] 98 Blood Pressure Position [Right Arm] Sitting 02 Sat by Pulse Oximetry 98 Oxygen Delivery Method Room Air - Reevaluation(s) Time: 13:41 Reevaluation #1: On reevaluation, patient pain is improved. Findings consistent with conjunctivitis. No evidence of septal or preseptal cellulitis. Patient is to follow-up with PCP. Given strict return precautions. Verbalized understanding. Medical Decision Narrative: 55-year-old female presenting with left eye irritation. Findings consistent with conjunctivitis as well as a small stye. Buckner lamp examination performed. Eye Problem HPI - General Chief complaint: Eye Problems Stated complaint: possible pink eye Time Seen by Provider: 02/01/21 13:35 Mode of Arrival: Ambulatory Limitations: No Limitations Description of Symptoms (Recalled from ER Triage Doc. by RN): TO ED PER PVT CAR WITH C/O DRAINAGE LT EYE STARTING FRIDAY - History of Present Illness HPI Narrative: 55-year-old female presented to the emergency department for redness and drainage from her left eye. Patient states that has been going on for the last 3 days. She has had some crusting and discharge from the left eye. She denies any trauma. She is having some irritation and itching, however no significant pain. She denies any change in vision. No fevers or chills. No chest pain or shortness of breath. No headache change in vision. No abdominal pain or vomiting. No diarrhea. - Related Data Home Medications Medication Instructions Recorded Confirmed thyroid (pork) 30 mg tablet 30 mg PO DAILY tab 06/12/20 Previous Rx's Medication Instructions Recorded Doxycycline Hyclate [Doxycycline 100 mg PO Q12 21 Days #42 cap 11/21/20 100mg Capsule] predniSONE [Prednisone 20mg 20 mg PO BID #10 tab 11/22/20 Tab] hydrOXYzine HCL [Hydroxyzine HCl] 10 mg PO BID #30 tab 12/23/20 Erythromycin Base [Erythromycin 1 film EYE-LEFT TID 7 Days #1 terry 02/01/21 1gm opth ointment] Allergies Allergy/AdvReac Type Severity Reaction Status Date / Time droperidol [From INAPSINE] Allergy Intermediate Respiratory Verified 11/21/20 17:20 Issues diphenhydramine Allergy Mild Verified 11/21/20 17:20 [From BENADRYL] cyclobenzaprine Allergy Unknown UNKNOWN Verified 11/21/20 17:20 [From FLEXERIL] NUTS (FOOD) Allergy Mild SWELLING Uncoded 06/12/20 14:12 [facility] History - Hepatitis A Screen Drug use history?: No High risk sexual behaviors?: No History of sexually transmitted infection?: No Currently employed?: No Childcare worker?: No Do you have indoor plumbing?: Yes Do you have electricity?: Yes Attestation statement:: This
[2021-02-01 14:09] VITALS: BP 125/74; PULSE 78; RESP 16; TEMP 36.6; O2SAT 98
== END 2021-02-01 14:10 | disposition home or self-care (01) ==
PROVIDERS: Emergency Provider Emergency Medicine; PCP Nurse Practitioner Acute Care
DX: H00.014 Hordeolum externum left upper eyelid (principal); H10.32 Unspecified acute conjunctivitis, left eye; I10 Essential (primary) hypertension; F41.8 Other specified anxiety disorders; F17.210 Nicotine dependence, cigarettes, uncomplicated; Z79.899 Other long term (current) drug therapy; E04.9 Nontoxic goiter, unspecified
CPT/HCPCS: 99281

== ENCOUNTER → 2021-05-08 14:28 | Outpatient (CLI) | payer MEDICAID, SELFPAY ==
[2021-05-08 14:35] LABS: Basophils % 0.4 % (0.1-2.0); Eosinophils # 0.3 K/mm3 (0.0-0.4); Eosinophils % 3.2 % (0.1-12.0); Hemoglobin 14.5 g/dL (12.2-16.2); Lymphocytes # 1.8 K/mm3 (0.7-4.5); Lymphocytes % 19.2 % (10-50); Mean Corpuscular HGB Conc 32.9 g/dL (31.8-35.4); Mean Corpuscular Hemoglobin 30.9 pg (27.0-31.2); Mean Corpuscular Volume 93.8 fl (81-99); Mean Platelet Volume 9.2 fl (7.4-10.4); Monocytes # 0.5 K/mm3 (0.1-1.0); Monocytes % 4.9 % (1.7-9.3); Neutrophils # 6.8 K/mm3 (1.8-7.8); Neutrophils % 72.4 % (37.0-80.0); Platelet Count 381 K/mm3 (142-424); Red Blood Count 4.69 M/mm3 (4.20-5.40); Red Cell Distribution Width 13.7 % (11.5-17.5); White Blood Count 9.4 K/mm3 (4.8-10.8)
[2021-05-08 14:54] LABS: Chloride 105 mmol/L (98-107); Potassium 4.9 mmoL/L (3.5-5.1); Sodium 143 mmol/L (136-145)
[2021-05-08 14:56] LABS: Alanine Aminotransferase 113 U/L (12-78); Aspartate Amino Transferase 113 U/L (14-36); Bilirubin,Total 0.5 mg/dl (0.2-1.3); Blood Urea Nitrogen 16 mg/dl (7-17); Estimated Glomerular Filt Rate 58 ml/min (>60); GFR (African American) 70 ML/MIN (>60)
[2021-05-08 14:57] LABS: Albumin Level 4.5 g/dl (3.5-5.0); Alkaline Phosphatase 71 U/L (38-126); Anion Gap 12.9 mEq/L (5-15); Carbon Dioxide 30 mmol/L (22.0-30.0); Globulin 2.3 g/dL (1.3-3.2); Glucose 89 mg/dl (74-100); HDL Cholesterol 39 mg/dl (40-60); Total Protein,Serum 6.8 g/dl (6.3-8.2)
[2021-05-08 15:03] LABS: Chol/HDL Ratio 4.1 (1-3.5); Cholesterol 159 mg/dl (140-200); Triglycerides 108 mg/dl (30-150); VLDL Cholesterol 22 mg/dL (0-40)
[2021-05-08 15:11] LABS: Direct LDL Cholesterol 99.95 mg/dL (100-129)
[2021-05-08 17:20] LABS: Free T4 (Free Thyroxine) 1.01 ng/dl (0.78-2.19)
[2021-05-08 18:29] LABS: Triiodothryronine (T3) Uptake 31 % (23.5-40.5)
[2021-05-08 18:43] LABS: Thyroid Stimulating Hormone 1.95 uIU/mL (0.465-4.68)
[2021-05-08 19:03] LABS: Vitamin B12 > 1000 pg/mL (239-931)
[2021-05-08 22:11] LABS: 25-OH Vitamin D, Total > 126 ng/mL (30-100)
[2021-05-10 10:25] LABS: Hep A Ab, IgM Negative (Negative); Hepatitis B Core Antibody IgM Negative (Negative); Hepatitis B Surface Antigen Negative (Negative); Hepatitis C Antibody <0.1 s/co ratio (0.0-0.9)
== END ==
PROVIDERS: Visit Provider Emergency Medicine
DX: R53.83 Other fatigue (principal); E55.9 Vitamin D deficiency, unspecified; E03.9 Hypothyroidism, unspecified; E66.9 Obesity, unspecified; Z68.36 Body mass index [BMI] 36.0-36.9, adult; Z72.0 Tobacco use
CPT/HCPCS: 80053; 80061; 80074; 82306; 82607; 84439; 84443; 84479; 85025

== ENCOUNTER → 2022-02-10 12:31 | Outpatient (CLI) | payer MEDICAID, SELFPAY | PROVIDERS: PCP Emergency Medicine; Visit Provider Orthopaedic Surgery | DX: Z01.812 Encounter for preprocedural laboratory examination (principal); Z11.52 Encounter for screening for COVID-19; S46.011A Strain of muscle(s) and tendon(s) of the rotator cuff of right shoulder, initial encounter | CPT/HCPCS: C9803; U0003; U0005 ==

== ENCOUNTER 2022-02-25 10:06 | Emergency (ER) | payer MEDICAID, SELFPAY ==
[2022-02-25 10:08] VITALS: BP 152/86; PULSE 82; RESP 18; TEMP 36.6; O2SAT 98; BMI 31.8
--- NOTE | 2022-02-25 10:22 | PC.NURSE ---
ED MD at
--- NOTE | 2022-02-25 10:29 | PC.NURSE ---
DIOGO GLORIA at
[2022-02-25 10:30] VITALS: BP 166/74; PULSE 85; O2SAT 100
--- NOTE | 2022-02-25 10:56 | XR_ITS ---
FINAL REPORT CLINICAL HISTORY: pain, fall FINDINGS: 3 views of the right shoulder were obtained. There is no acute fracture or dislocation. There are mild hypertrophic changes at the AC joint. There are no soft tissue abnormalities. IMPRESSION: No acute process. Reviewed, Interpreted and Dictated by Murali Pollock MD Transcribed by Victor Hugo Chandler Authenticated by Murali Pollock MD on 02/25/2022 12:16:03 PM [facility]
--- NOTE | 2022-02-25 10:56 | CT_ITS ---
FINAL REPORT TECHNIQUE: Axial images were obtained of the cervical spine by computed tomography. Coronal and sagittal reconstruction process performed. This study was performed with techniques to keep radiation doses as low as reasonably achievable (ALARA). Individualized dose reduction techniques using automated exposure control or adjustment of mA and/or kV according to the patient''s size were employed. CLINICAL HISTORY: neck pain, fall FINDINGS: Cervical vertebrae show normal height. There is [id number] disc space narrowing at C5-6 and C6-7 with endplate hypertrophy. There is no malalignment. The facets are properly aligned. C2-C3: No significant canal stenosis or neural foraminal narrowing. C3-C4: No significant canal stenosis or neural foraminal narrowing. C4-C5: No significant canal stenosis or neural foraminal narrowing. C5-C6: There is moderate right and mild left neural foraminal narrowing. C6-C7: There is mild bilateral neural foraminal narrowing. C7-T1: No significant canal stenosis or neural foraminal narrowing. IMPRESSION: No fracture. Degenerative disc disease at C5-6 and C6-7. Reviewed, Interpreted and Dictated by Murali Pollock MD Transcribed by Victor Hugo Chandler Authenticated by Murali Pollock MD on 02/25/2022 12:16:07 PM [facility]
--- NOTE | 2022-02-25 10:57 | XR_ITS ---
FINAL REPORT CLINICAL HISTORY: pain/fall FINDINGS: 2 views of the right humerus were obtained. There is no acute fracture or dislocation. The joint spaces appear intact. There is no acute soft tissue abnormality. IMPRESSION: No acute process. Reviewed, Interpreted and Dictated by Murali Pollock MD Transcribed by Victor Hugo Chandler Authenticated by Murali Pollock MD on 02/25/2022 12:16:04 PM [facility]
--- NOTE | 2022-02-25 11:06 | PC.NURSE ---
pt to radiology
--- NOTE | 2022-02-25 12:26 | HMH.EDGENADL ---
ED Disposition Clinical Impression: Chronic neck pain Right shoulder pain Qualifiers: Chronicity: acute Qualified Code(s): M25.511 - Pain in right shoulder Disposition: Home, Self-Care Condition on Discharge: Good Referrals: Truong Rodriguez MD [Primary Care Provider] - - Critical Care Critical Care Time: No Attestation: On 02/25/22, the high probability of a clinically significant, sudden or life threatening deterioration of the following system(s) required my full and direct attention, intervention and personal management. The time I documented below is in addition to time spent performing reported procedures but includes the following listed in this critical care notation. Medical Decision Making - Medical Records Medical records reviewed: Yes: I reviewed the patient's medical records. - Dino Inquiry Pt receiving controlled substance: Yes (One time dose for acute pain ) Dino was queried for this patient: No Risks and benefits of using a controlled substance: were not discussed with pt by me Vital Signs: 02/25/22 10:08 02/25/22 10:30 Temperature 97.8 F Temperature Source Oral Pulse Rate 85 Pulse Rate [Left Radial] 82 Respiratory Rate 18 Blood Pressure 166/74 H Blood Pressure [Left Arm] 152/86 H Blood Pressure Mean [Left Arm] 108 Blood Pressure Source Automatic Cuff Blood Pressure Source [Left Arm] Automatic Cuff Blood Pressure Position Sitting Blood Pressure Position [Left Arm] Sitting 02 Sat by Pulse Oximetry 98 100 Oxygen Delivery Method Room Air Room Air - Lab Data Lab results reviewed: Yes: I reviewed the patient's lab results. Orders (Tests/Meds): ED MEDICATIONS Discontinued Medications Generic Name Dose Route Start Last Admin Trade Name Julio Cesarq PRN Reason Stop Dose Admin Hydrocodone Bitart/Acetaminophen 1 tab 02/25/22 10:58 02/25/22 11:03 Hydrocodone 10mg/Apap 325mg Tab PO 02/25/22 10:59 1 tab ONCE ONE Administration Ketorolac Tromethamine 15 mg 02/25/22 10:57 Ketorolac 30mg/Ml Vial IV 02/25/22 10:58 ONCE ONE Ketorolac Tromethamine 15 mg 02/25/22 11:00 02/25/22 11:02 Ketorolac 30mg/Ml Vial IM 02/25/22 11:01 15 mg ONCE ONE Administration Methocarbamol 750 mg 02/25/22 10:58 02/25/22 11:42 Methocarbamol 500mg Tablet PO 02/25/22 10:59 750 mg ONCE ONE Administration Medical Decision Narrative: Patient is a 56-year-old female with a recent right rotator cuff surgeries presenting for chief complaint of right shoulder pain, neck pain and medial thigh pain s/p fall. Differential diagnosis includes, but is not limited to, fracture, dislocation, ligament injury, contusion/bruising or injury to C-spine. On initial exam, patient has no neurologic deficits and has normal gait. She has pain with tenderness over the C-spine, evaluate the CT C-spine which showed degenerative spine disease but otherwise no acute findings. X-rays of the right shoulder and humerus are negative. She was treated for pain with Robaxin, Toradol and 1 dose of Winn. Patient reports she feels better and called to schedule a follow-up appointment with her orthopedic surgeon given that I advised her she may need an evaluation of her shoulder with MRI. Due to concern for muscle spasms, she was given additional dose of IV Valium. She was given return precautions and discharged in stable condition. General Adult HPI - General Chief complaint: PAIN Stated complaint: AO fall 02/24 rt shoulder pain, rt leg pain Time Seen by Provider: 02/25/22 11:30 Mode of Arrival: Ambulatory Limitations: No Limitations Description of Symptoms (Recalled from ER Triage Doc. by RN): Pt reports she fell yesterday into a water meter cover. Pt reports pain in R shoulder, R wrist/hand, and R upper thigh/groin area. Pt reports her R leg fell into the meter. Bruising noted to R groin area and R hand. Pt reports had R rotator cuff repair surgery on 02/12/22, pt report pain is worse
[2022-02-25 12:30] VITALS: PULSE 85; O2SAT 97
[2022-02-25 12:45] VITALS: BP 160/70; PULSE 84; RESP 16; TEMP 36.9; O2SAT 98
== END 2022-02-25 12:55 | disposition home or self-care (01) ==
PROVIDERS: Emergency Provider Emergency Medicine; PCP Emergency Medicine
DX: M54.2 Cervicalgia (principal); M25.511 Pain in right shoulder; W01.198A Fall on same level from slipping, tripping and stumbling with subsequent striking against other object, initial encounter; Y92.017 Garden or yard in single-family (private) house as the place of occurrence of the external cause; I10 Essential (primary) hypertension; F41.8 Other specified anxiety disorders; F17.210 Nicotine dependence, cigarettes, uncomplicated; Z79.899 Other long term (current) drug therapy
CPT/HCPCS: 72125; 73030; 73060; 96372; 99284

== ENCOUNTER 2022-07-19 03:26 | Emergency (ER) | payer MEDICAID, SELFPAY ==
[2022-07-19 03:39] VITALS: BP 174/92; PULSE 80; RESP 16; TEMP 36.8; O2SAT 98; BMI 34.0
--- NOTE | 2022-07-19 04:15 | HMH.EDGENADL ---
Discharge Plan Disposition Patient Disposition: Home, Self-Care Chief Complaint: Anxiety Prescriptions Prescriptions: No Action thyroid (pork) 30 mg tablet 30 mg PO DAILY phentermine [Adipex-P] 37.5 mg tablet 37.5 mg PO DAILY Qty: 30 0RF Rx Instructions: must administer 30 minutes before or 1-2 hours after breakfast [id number] intramuscular injectable IM gabapentin 300 mg capsule 300 mg PO DAILY PRN bupropion HCl 75 mg tablet See Rx Instructions .ROUTE .COMPLEX Qty: 60 0RF Dose Instruction: TAKE ONE TABLET BY MOUTH TWICE DAILY Rx Instructions: TAKE ONE TABLET BY MOUTH TWICE DAILY methocarbamol 500 MG tablet 500 mg PO QID PRN (Reason: Muscle Spasm) Qty: 20 0RF Referrals Follow up/Referrals: Lilliana Nieto [Primary Care Provider] - See instructions Clinical Impressions Clinical Impression: Hypertension Instructions Patient Instructions: Hypertension (Alternative Therapy) Discharge ED Provider: Truong Rodriguez General Adult HPI General Chief complaint: Anxiety Stated complaint: High blood pressure Time Seen by Provider: 07/19/22 04:15 Mode of Arrival: Ambulatory Source of Information: Patient and Medical Record Limitations: No Limitations Description of Symptoms (Recalled from ER Triage Doc. by RN): Pt arrives pov c c/o hypertension for prior 2 days. Was seen by pcp on 07/17 and told her bp was elevated, to monitor it for 2 weeks and return with results. Since then pt states she has had family problems at home and her bp has stayed elevated. Yest am bp was 166/102, yesterday afternoon is was 151/91, last night it was 130/95 and this morning it was 129/73, so she came to the ER for evaluation. Denies any chest pain, dizziness or soa. History of Present Illness HPI narrative: has hx of elevated bp and presents for eval -no chest pain and no focal neuro sx Onset (ago): day(s) Severity: moderate Associated symptoms: denies other symptoms Related Data Home Medications Medication Instructions Recorded Confirmed thyroid (pork) 30 mg tablet 30 mg PO DAILY 06/12/20 07/03/21 gabapentin 300 mg capsule 300 mg PO DAILY PRN 05/08/21 07/03/21 [id number] intramuscular each IM 05/08/21 07/03/21 Previous Rx's Medication Instructions Recorded phentermine 37.5 mg tablet 37.5 mg PO DAILY #30 tabs 06/05/21 (Adipex-P) methocarbamol 500 mg tablet 500 mg PO QID PRN Muscle Spasm #20 02/25/22 tabs bupropion HCl 75 mg tablet See Rx Instructions .Route 07/15/22 .COMPLEX #60 tabs Allergies Allergy/AdvReac Type Severity Reaction Status Date / Time droperidol [From INAPSINE] Allergy Intermediate Respiratory Verified 07/03/21 09:07 Issues diphenhydramine Allergy Mild Verified 07/03/21 09:07 [From BENADRYL] cyclobenzaprine Allergy Unknown UNKNOWN Verified 07/03/21 09:07 [From FLEXERIL] NUTS (FOOD) Allergy Mild SWELLING Uncoded 06/05/21 09:06 PFSH PFSH Social History Smoking Status: Current every day smoker tobacco type: cigarettes packs per day: 0 alcohol intake: never substance use type: marijuana current occupational status: disabled Travel in the last 8 weeks: None household members: spouse housing: house ROS Obtained: Yes All systems reviewed & no additional complaints except as documented Physical Exam General General appearance: alert and obese Head Head exam: normocephalic Eye Eye exam: Present PERRL and EOMI ENT ENT exam: Present mucous membranes moist Neck Neck exam: Present trachea midline Respiratory Respiratory exam: Present normal lung sounds bilaterally Cardiovascular Cardiovascular exam: Present regular rate and systolic murmur Abdominal Exam Abdominal exam: Present soft Extremities Exam Extremities exam: Present full ROM Neurological Exam Neurological exam: Present alert, oriented X3 and CN II-XII intact Psychiatric Psychiatric exam: Present anxious Skin Skin exam: Absent mary
[2022-07-19 04:16] VITALS: BP 159/81; PULSE 68; RESP 18; O2SAT 98
[2022-07-19 04:28] LABS: Basophils # 0.1 K/mm3 (0-0.2); Basophils % 1.1 % (0.1-2.0); Eosinophils # 0.5 K/mm3 (0.0-0.4); Eosinophils % 4.8 % (0.1-12.0); Hematocrit 45.8 % (37.0-47.0); Hemoglobin 15.1 g/dL (12.2-16.2); Lymphocytes # 2.4 K/mm3 (0.7-4.5); Lymphocytes % 21.4 % (10-50); Mean Platelet Volume 8.5 fl (7.4-10.4); Monocytes # 0.6 K/mm3 (0.1-1.0); Monocytes % 5.5 % (1.7-9.3); Neutrophils # 7.4 K/mm3 (1.8-7.8); Neutrophils % 67.3 % (37.0-80.0); Platelet Count 370 K/mm3 (142-424); Red Blood Count 4.72 M/mm3 (4.20-5.40); Red Cell Distribution Width 13.1 % (11.5-17.5)
[2022-07-19 04:30] LABS: Chloride 105 mmol/L (98-107); Potassium 4.3 mmoL/L (3.5-5.1)
[2022-07-19 04:31] LABS: Sodium 140 mmol/L (136-145)
[2022-07-19 04:33] LABS: Alanine Aminotransferase 22 U/L (12-78); Albumin Level 4.4 g/dl (3.5-5.0); Albumin/Globulin Ratio 1.8 (1.1-1.8); Alkaline Phosphatase 74 U/L (38-126); Anion Gap 12.3 mEq/L (5-15); Aspartate Amino Transferase 33 U/L (14-36); Bilirubin,Total 0.2 mg/dl (0.2-1.3); Blood Urea Nitrogen 15 mg/dl (7-17); Carbon Dioxide 27 mmol/L (22.0-30.0); Creatinine Clearance Estimated 109 mL/min (50-200); Estimated Glomerular Filt Rate 74 ml/min (>60); GFR (African American) 90 ML/MIN (>60); Globulin 2.5 g/dL (1.3-3.2); Total Protein,Serum 6.9 g/dl (6.3-8.2)
[2022-07-19 04:34] LABS: Calcium 8.9 mg/dl (8.4-10.2); Glucose 111 mg/dl (74-100)
--- NOTE | 2022-07-19 04:35 | PC.NURSE ---
Pt ambulated to BR and tolerated well.
[2022-07-19 04:51] LABS: T4 (Thyroxine) 8.2 ug/dl (5.53-11.0)
[2022-07-19 05:05] VITALS: BP 135/63; PULSE 72; RESP 16; TEMP 36.6; O2SAT 97
[2022-07-19 05:49] VITALS: BP 138/80; PULSE 84; RESP 19; TEMP 36.8; O2SAT 97
== END 2022-07-19 05:52 | disposition home or self-care (01) ==
PROVIDERS: Emergency Provider Emergency Medicine; PCP Nurse Practitioner Acute Care
DX: I10 Essential (primary) hypertension (principal); F41.9 Anxiety disorder, unspecified
CPT/HCPCS: 80053; 84436; 84443; 85025; 99282

== ENCOUNTER 2023-02-11 02:59 | Emergency (ER) | payer MEDICAID, SELFPAY ==
[2023-02-11 03:22] VITALS: BP 163/103; PULSE 82; RESP 16; TEMP 36.5; O2SAT 98; BMI 28.5
--- NOTE | 2023-02-11 03:25 | XR_ITS ---
PROCEDURE INFORMATION: Exam: XR Lumbosacral Spine Exam date and time: 02/11/2023 3:46 AM Age: 57 years old Clinical indication: Low back pain; Patient HX: States she hurt her back while planting trees; Additional info: Back injury TECHNIQUE: Imaging protocol: Radiologic exam of the lumbosacral spine. Views: 2 or 3 views. 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 No acute fracture. Normal alignment. Soft tissues: Unremarkable. Organs: There has been a cholecystectomy. Pelvic phleboliths. IMPRESSION: Unremarkable exam.
--- NOTE | 2023-02-11 03:25 | XR_ITS ---
PROCEDURE INFORMATION: Exam: XR Thoracic Spine Exam date and time: 02/11/2023 3:48 AM Age: 57 years old Clinical indication: Pain in thoracic spine; Patient HX: States she hurt her back tonight planting trees; Additional info: Back injury TECHNIQUE: Imaging protocol: Radiologic exam of the thoracic spine. Views: 3 views. COMPARISON: 1. CR XR LUMBAR SPINE 2-3V 02/11/2023 3:46 AM 2. CR CXR CHEST(2 VIEWS-NOT PORTABLE) 06/30/2017 9:47 AM FINDINGS: Bones/joints: Rightward curvature of the thoracic spine. Multilevel discogenic endplate changes involving the lower cervical and thoracic spine. No acute fracture, normal alignment. No wedge compression deformity. Soft tissues: Nodular density at the left lateral lung base appears similar to comparison chest x-ray from 2017, likely reflecting nipple shadow. Organs: There has been a cholecystectomy. IMPRESSION: No thoracic spine fracture.
--- NOTE | 2023-02-11 05:51 | HMH.EDBACK ---
Discharge Plan Disposition Patient Disposition: Home, Self-Care Prescriptions Prescriptions: New prednisone [prednisone] 20 mg tablet 20 mg PO BID Qty: 10 0RF No Action thyroid (pork) 30 mg tablet 30 mg PO DAILY phentermine [Adipex-P] 37.5 mg tablet 37.5 mg PO DAILY Qty: 30 0RF Rx Instructions: must administer 30 minutes before or 1-2 hours after breakfast [id number] intramuscular injectable IM gabapentin 300 mg capsule 300 mg PO DAILY PRN bupropion HCl 75 mg tablet See Rx Instructions .ROUTE .COMPLEX Qty: 60 0RF Dose Instruction: TAKE ONE TABLET BY MOUTH TWICE DAILY Rx Instructions: TAKE ONE TABLET BY MOUTH TWICE DAILY methocarbamol 500 MG tablet 500 mg PO QID PRN (Reason: Muscle Spasm) Qty: 20 0RF Referrals Follow up/Referrals: Provider,Referral, [Primary Care Provider] - See instructions Clinical Impressions Clinical Impression: Strain of lumbar region Instructions Patient Instructions: DI for Low Back Pain Discharge ED Provider: Jennifer (ED)Truong Back Pain HPI General Chief Complaint: Back Pain/Injury Stated Complaint: Pain right side waist line area with nausea Time Seen by Provider: 02/11/23 05:51 Mode of Arrival: Family Vehicle Source of Information: Patient and Medical Record Limitations: No Limitations Description of Symptoms (Recalled from ER Triage Doc. by RN): 57 YO FEMALE PRESENTS WITH CC OF RIGHT SIDE BACK PAIN AFTER LIFTING ON TREES/SOIL/MULCH EARLIER TODAY. IS ADAMANT THAT SHE PULLED SOMETHING AND ATTEMPTED TO USE A LIDODERM-TYPE PATCH FOR PAIN RELIEF WELL TYLENOL WITHOUT SUCCESS. STATES IT IS RADIATING AROUND TO HER RIGHT FLANK/ABD AREA. NO FALLS. NO OTHER HISTORY. NO SYMPTOMS IN ADDITION TO PAIN. AFEBRILE. History of Present Illness HPI Narrative: pt with acute back pain after lifting in yard w/o fever/rash or cauda equina sx - MD Complaint: back pain Onset (ago): hour(s) Duration: intermittent Similar Symptoms Previously: Yes Location: lumbar spine Severity: moderate Quality: sharp Context: while lifting and bending Associated symptoms: denies other symptoms Treatments prior to arrival: NSAIDS and other medications Related Data Home Medications Medication Instructions Recorded Confirmed thyroid (pork) 30 mg tablet 30 mg PO DAILY 06/12/20 07/03/21 gabapentin 300 mg capsule 300 mg PO DAILY PRN 05/08/21 07/03/21 [id number] intramuscular each IM 05/08/21 07/03/21 Previous Rx's Medication Instructions Recorded phentermine 37.5 mg tablet 37.5 mg PO DAILY #30 tabs 06/05/21 (Adipex-P) methocarbamol 500 mg tablet 500 mg PO QID PRN Muscle Spasm #20 02/25/22 tabs bupropion HCl 75 mg tablet See Rx Instructions .Route 07/15/22 .COMPLEX #60 tabs prednisone 20 mg tablet 20 mg PO BID #10 tabs 02/11/23 Allergies Allergy/AdvReac Type Severity Reaction Status Date / Time droperidol [From INAPSINE] Allergy Intermediate Respiratory Verified 07/03/21 09:07 Issues diphenhydramine Allergy Mild Verified 07/03/21 09:07 [From BENADRYL] cyclobenzaprine Allergy Unknown UNKNOWN Verified 07/03/21 09:07 [From FLEXERIL] NUTS (FOOD) Allergy Mild SWELLING Uncoded 06/05/21 09:06 PFSH [facility] Disclaimer: The information contained in this section may have been updated after the patient was seen, as this information can be updated by other users. Social History Smoking Status: Former smoker alcohol intake: never substance use type: marijuana current occupational status: disabled Travel in the last 8 weeks: None household members: spouse housing: house ROS Obtained: Yes All systems reviewed & no additional complaints except as documented Physical Exam General General appearance: alert Head Head exam: normocephalic Eye Eye exam: Present PERRL and EOMI ENT ENT exam: Present mucous membranes moist Neck Neck exam: Present trachea midline Respiratory Respirato
[2023-02-11 07:00] VITALS: BP 165/85; PULSE 82; RESP 15; TEMP 36.8; O2SAT 98
== END 2023-02-11 07:00 | disposition home or self-care (01) ==
PROVIDERS: Emergency Provider Emergency Medicine
DX: S39.012A Strain of muscle, fascia and tendon of lower back, initial encounter (principal); X50.0XXA Overexertion from strenuous movement or load, initial encounter; R11.0 Nausea
CPT/HCPCS: 72072; 72100; 96374; 96375; 99284

== ENCOUNTER 2024-05-10 15:50 | Emergency (ER) | payer MEDICAID, SELFPAY ==
[2024-05-10 16:00] VITALS: BP 202/78; PULSE 84; RESP 21; TEMP 36.9; O2SAT 98; BMI 32.4
--- NOTE | 2024-05-10 16:07 | XR_ITS ---
FINAL REPORT CLINICAL HISTORY: pain COMPARISON: None FINDINGS: RIGHT FOOT: Three views of the right foot were obtained. There is no acute fracture or dislocation. Mild degenerative change is present. Calcaneal spurs are noted. There is no soft tissue abnormality. IMPRESSION: No acute bony abnormality. Reviewed, Interpreted and Dictated by Josh Farrell III, MD Transcribed by Cece Grace Authenticated and [facility]
--- NOTE | 2024-05-10 16:51 | ED_ITS ---
Discharge Plan Disposition Patient Disposition: Home, Self-Care Condition: Good Prescriptions Prescriptions: New ibuprofen 600 mg tablet 600 mg PO Q6HP PRN (Reason: Moderate Pain) Qty: 20 0RF Referrals Follow up/Referrals: Provider,Referral, [Primary Care Provider] - See instructions Ileana Nieto APRN [Nurse Practitioner] - See instructions (call office for appointment) Activity Restrictions/Add. Instructions Additional Instructions/Restrictions: Take ibuprofen as prescribed Follow up with your Family Doctor if pain continues Return if needed Straight to ER if any life threatening symptoms Clinical Impressions Clinical Impression: Foot pain Qualifiers: Laterality: right Qualified Code(s): M79.671 - Pain in right foot Instructions Patient Instructions: DI for Foot Pain Discharge ED Provider: Ariadna Lindquist [facility] General Stated complaint: Right foot pain,injury 2021 Mode of Arrival: Ambulatory Source of Information: Patient Limitations: No Limitations Time Seen by Provider: 05/10/24 16:51 Description of Symptoms (Recalled from Triage Doc. by RN): PATIENT STATES THAT IN AUGUST 2022 A LOG FELL ON HER RIGHT FOOT AND SHE WANTS TO MAKE SURE IT'S NOT BROKEN HEENT Symptoms (Recalled from RN notes): No Resp Symptoms (Recalled from RN notes): No Skin Symptoms (Recalled from RN notes): No MS Symptoms (Recalled from RN notes): Yes Functional Status (Recalled from RN notes): WNL History of Present Illness Provider Complaint: Patient states that about 2 years ago she had a small log roll onto her foot and states that she has been having pain on and off every since States that at times it hurts worse than others and worse at times with walking States today it has been bothering her so she came in to get it checked Related Data Previous Rx's Medication Instructions Recorded ibuprofen 600 mg tablet 600 mg PO Q6HP PRN Moderate Pain 05/10/24 #20 tabs Allergies Allergy/AdvReac Type Severity Reaction Status Date / Time droperidol [From INAPSINE] Allergy Intermediate Respiratory Verified 07/03/21 09:07 Issues diphenhydramine Allergy Mild Verified 07/03/21 09:07 [From BENADRYL] cyclobenzaprine Allergy Unknown UNKNOWN Verified 07/03/21 09:07 [From FLEXERIL] nut - unspecified Allergy Swelling Verified 05/10/24 16:12 of Lip/Tongue/Throat Worker's Comp Is this a Worker's Comp case?: No [facility] Disclaimer: The information contained in this section may have been updated after the patient was seen, as this information can be updated by other users. Medical History (Updated 05/10/24 @ 16:56 by Ariadna Lindquist APRN) Liver disease Anxiety Migraine Surgical History (Updated 05/10/24 @ 16:13 by Kristy Marshall RN) History of section History of hysterectomy Social History Smoking Status: Former smoker tobacco type: cigarettes packs per day: 0 alcohol intake: never substance use type: marijuana current occupational status: disabled Travel in the last 8 weeks: None household members: spouse housing: house ROS Obtained: Yes All systems reviewed & no additional complaints except as documented and Yes Systems reviewed as appropriate & no additional complaints except as documented Constitutional Constitutional: Reports system reviewed and no additional complaints, except as documented and Reports as per HPI Cardiovascular Cardiovascular: Reports system reviewed and no additional complaints, except as documented and Reports as per HPI Respiratory Respiratory: Reports system reviewed and no additional complaints, except as documented and Reports as per HPI Gastrointestinal Gastrointestingal: Reports system reviewed and no additional complaints, except as documented and as per HPI Musculoskeletal Musculoskeletal: Reports system reviewed and no additional complaints, except as documented, Reports as per HPI and Reports other (pain in right foot on and off x 2 yrs) Physical Exam General General appearance: alert and in no apparent distress ENT ENT exam: Present mucous membranes moist Respiratory Respiratory exam: Present normal lung sounds bilaterally; Absent respiratory distress or wheezes Cardiovascular Cardiovascular exam: Present regular rate, normal rhythm and normal heart sounds Abdominal Exam Abdominal exam: Present soft and normal bowel sounds; Absent distention or tenderness Expanded Lower Extremity Exam Right: Ankle image: 2 1. reports tenderness and pain on off x 2 yrs worse at times with walking Foot/toe exam: Present tenderness; Absent swelling, abrasion, ecchymosis, deformity, dislocation or erythema Gait: observed and normal Neurological Exam Neurological exam: Present alert, oriented X3 and normal gait Medical Decision Making Dino Inquiry Pt receiving controlled substance: No Dino was queried for this patient: No Vital Signs: 05/10/24 16:00 Temperature 98.4 F Temperature Source Oral Pulse Rate [Left Brachial] 84 Respiratory Rate 21 Blood Pressure [Left Arm] 202/78 H Blood Pressure Mean [Left Arm] 119 Blood Pressure Source [Left Arm] Automatic Cuff Blood Pressure Position [Left Arm] Sitting 02 Sat by Pulse Oximetry 98 Oxygen Delivery Method Room Air Orders (Tests/Meds): ORDERS Category Date Time Status Foot XR right minimum 3 views [XR foot RT min 3V] Stat Exams 05/10/24 16:07 Taken Radiology Data #1: Image(s): Foot/Toes Image Reviewed: Yes I have reviewed radiologist's interpretation IMPRESSION: No acute bony abnormality. Medical Decision Narrative: Patient states that she has taken Ibuprofen in the past without complications or reactions
[2024-05-10 17:17] VITALS: BP 181/64; PULSE 84; RESP 21; TEMP 36.9; O2SAT 98
== END 2024-05-10 17:19 | disposition home or self-care (01) ==
PROVIDERS: Emergency Provider Nurse Practitioner
DX: M79.671 Pain in right foot (principal); W20.8XXA Other cause of strike by thrown, projected or falling object, initial encounter
CPT/HCPCS: 73630; 99204; 99212; G0463

== ENCOUNTER 2024-08-24 23:53 | Emergency (ER) | payer SELFPAY ==
[2024-08-24 23:55] VITALS: BP 177/90; PULSE 89; RESP 18; TEMP 36.6; O2SAT 98; BMI 28.3
--- NOTE | 2024-08-25 00:27 | XR_ITS ---
PROCEDURE INFORMATION: Exam: XR Left Hand Exam date and time: 08/25/2024 12:27 AM Age: 58 years old Clinical indication: Pain; Hand; Left; Additional info: Pain posterior hand, moving, lifting TECHNIQUE: Imaging protocol: Radiologic exam of the left hand. Views: 1 or 2 views. COMPARISON: DX FARMLT XR forearm LT 2V 04/03/2018 10:25 AM FINDINGS: Bones/joints: Normal. Incomplete visualization of old fixation hardware at mid ulna Soft tissues: Normal. IMPRESSION: No acute findings.
[2024-08-25] MEDS: KETOROLAC 30MG/ML VIAL 30 MG IM (00:34)
--- NOTE | 2024-08-25 00:37 | PC.NURSE ---
pt to xray
--- NOTE | 2024-08-25 00:39 | ED_ITS ---
Discharge Plan Disposition Patient Disposition: Home, Self-Care Condition: Good Prescriptions Prescriptions: New valacyclovir 1 gram tablet 1,000 mg PO TID 7 Days Qty: 21 0RF valacyclovir 1 gram tablet 1,000 mg PO TID 7 Days Qty: 21 0RF No Action ibuprofen 600 mg tablet 600 mg PO Q6HP PRN (Reason: Moderate Pain) Qty: 20 0RF Referrals Follow up/Referrals: John Johnson DO [Staff Physician] - See instructions (needs PCP, possible rheum disorder? (waxing/waning areas of pain/swelling/redness associated with stress)) Provider,Referral, MD [Primary Care Provider] - See instructions Activity Restrictions/Add. Instructions Additional Instructions/Restrictions: You were evaluated in the ER and are appropriate for discharge at this time. Take the prescribed valacyclovir as directed. Continue taking Tylenol, ibuprofen if needed for pain. Do not exceed the recommended dose on the bottle. Drink water and eat a small snack each time you take these medications. Follow-up with Dr. Johnson for primary care follow-up and further evaluation. Return to the ER with new, worsening, or otherwise concerning symptoms Clinical Impressions Clinical Impression: Hand pain, left, Hyperesthesia Print Language Print Language: Nepali Discharge ED Provider: Randall Pollock General Adult HPI General Chief complaint: Extremity Problem,Nontraumatic Stated complaint: L hand pain, unable to move Time Seen by Provider: 08/25/24 00:11 Mode of Arrival: Ambulatory Source of Information: Patient Limitations: No Limitations Description of Symptoms (Recalled from ER Triage Doc. by RN): Patient complains of left hand swelling and pain starting this afternoon. No known injury. History of Present Illness HPI narrative: 58-year-old female presents to the ER for complaints of severe burning, stabbing sensation in the back of her left hand/wrist. Patient states she has had episodes like this previously. She also states she recently had similar pain on her right side that developed into crusting blistered lesions. She stated hot and cold showers made that area significantly more painful. She states this spontaneously cleared up, however patient is now experiencing similar symptoms in the back of her left hand. She does report she has been under severe stress recently. She reports she lost her aunt and her mother in the last week. She is also currently moving. She denies any known injury, states she has not fallen, but did noticed the pain worsening after moving today. She states her pain onset this afternoon and has not been responsive to Tylenol, ibuprofen, or Osteo Bi-Flex. Patient does not have rash yet but states the skin is extremely sensitive to the touch. She has often wondered if she potentially has an autoimmune disorder because she occasionally gets these waxing/waning symptoms. Patient reports being exposed to chickenpox as a child but is unsure if she ever had true infection. She has not received the shingles vaccine. No fevers, chills, chest pain, difficulty breathing, headache, numbness, tingling, weakness. She does state the pain hand is very uncomfortable to flex/extend secondary to pain in the posterior aspect. Related Data Previous Rx's ?Medication ?Instructions ?Recorded ibuprofen 600 mg tablet 600 mg PO Q6HP PRN Moderate Pain 05/10/24 #20 tabs valacyclovir 1 gram tablet 1,000 mg PO TID 7 days #21 tabs 08/25/24 valacyclovir 1 gram tablet 1,000 mg PO TID 7 days #21 tabs 08/25/24 Allergies Allergy/AdvReac Type Severity Reaction Status Date / Time droperidol [From INAPSINE] Allergy Intermediate Respiratory Verified 07/03/21 09:07 Issues diphenhydramine Allergy Mild Verified 07/03/21 09:07 [From BENADRYL] cyclobenzaprine Allergy Unknown UNKNOWN Verified 07/03/21 09:07 [From FLEXERIL] nut - unspecified Allergy Swelling Verified 05/10/24 16:12 of Lip/Tongue/Throat [facility] Disclaimer: The information contained in this section may have been updated after the patient was seen, as this information can be updated by other users. Medical History (Updated 08/25/24 @ 00:45 by Randall Pollock MD) Liver disease Anxiety Migraine Surgical History (Updated 05/10/24 @ 16:13 by Kristy Marshall RN) History of section History of hysterectomy Social History Smoking Status: Current every day smoker tobacco type: cigarettes packs per day: 0 alcohol intake: never substance use type: marijuana current occupational status: disabled Travel in the last 8 weeks: None household members: spouse housing: house Other Medical History Have you received the Flu Vaccine for this season: No Have you received the Pneumonia Vaccine: No ROS Obtained: Yes All systems reviewed & no additional complaints except as docu mented Positive ROS per HPI Physical Exam General General appearance: alert and in no apparent distress Head Head exam: atraumatic and normocephalic Eye Eye exam: Present PERRL and EOMI ENT ENT exam: Present mucous membranes moist Neck Neck exam: Present normal inspection and full ROM Chest Chest inspection: Present symmetric chest wall rise Respiratory Respiratory exam: Absent respiratory distress or stridor Cardiovascular Cardiovascular exam: Present regular rate and normal rhythm Extremities Exam Extremities exam: Present full ROM (Patient has pain with full flexion extension of the left hand/wrist but is able to do both), tenderness (Tenderness with significant hyperesthesia of the skin of the posterior left hand, no visible swelling or erythema) and other (Neurovascularly intact throughout, no crepitus or deformity); Absent joint swelling Neurological Exam Neurological exam: Present alert and oriented X3; Absent motor sensory deficit Psychiatric Psychiatric exam: Present normal affect and normal mood Skin Skin exam: Present warm and dry; Absent rash Medical Decision Making Medical Records Screening: Per USPSTF and CDC recommendations, given the prevalence of disease in our region, it is our hospital?s policy to screen for HIV and viral Hepatitis for all patients aged 18 and over and those with ongoing risk factors. Dino Inquiry Pt receiving controlled substance: No Vital Signs: 08/24/24 23:55 Temperature 97.8 F Temperature Source Oral Pulse Rate [Right Radial] 89 Respiratory Rate 18 Blood Pressure [Right Arm] 177/90 H Blood Pressure Mean [Right Arm] 119 Blood Pressure Source [Right Arm] Automatic Cuff Blood Pressure Position [Right Arm] Sitting 02 Sat by Pulse Oximetry 98 Oxygen Delivery Method Room Air Orders (Tests/Meds): ED MEDICATIONS Discontinued Medications Generic Name Dose Route Start Last Admin Trade Name Freq PRN Reason Stop Dose Admin Ketorolac Tromethamine 30 mg 08/25/24 00:26 08/25/24 00:34 Ketorolac 30mg/Ml Vial IM 08/25/24 00:27 30 mg ONCE ONE Administration ORDERS Category Date Time Status Hand XR left 2 views [XR hand LT 2V] Stat Exams 08/25/24 00:27 Ordered Medical Decision Narrative: In summary, this 58-year-old female presents to the emergency department today with left hand pain. On initial evaluation patient is hemodynamically stable, afebrile, on exam patient has significant hyperesthesia of the skin of the posterior left hand, no obvious traumatic findings, no obvious swelling, neurovascularly intact. Differential diagnosis includes but is not limited to I considered bony injury given patient's extensive recent moving, possible degenerative changes, as well as soft tissue injury like sprain or strain, also considered brachial plexus injury but have no evidence of this on exam since patient does not have any change in her pain with movement of the neck or shoulder, with significant hyperesthesia of the posterior hand and skin as well as her description of recent rash, I do have concern for shingles. Based on these concerns, I ordered x-ray left hand. Patient is receiving Toradol for symptom management. X-ray personally interpreted does not demonstrate acute osseous injury. See radiology read for final interpretation. Patient was prescribed valacyclovir for concern for developing shingles given her recent symptoms consistent with it, significant stress which can increase chances of reactivation of the virus, and her severe hyperesthesia of the skin. I considered the possibility of rheumatologic disorder contributing to patient's other symptoms as well, she did not have a primary care physician so I referred her to family medicine for this purpose for follow-up. Patient does not want any narcotics or potentially sedating medications so I encouraged her to continue using [id number] medications for pain management. Patient was given instructions on symptomatic management, follow up instructions, and return precautions for the emergency department. Patient indicated understanding and was discharged in stable condition. Critical Care Critical Care Time Critical Care Time: No
[2024-08-25 00:46] VITALS: BP 150/88; PULSE 80; RESP 18; TEMP 36.6; O2SAT 97
== END 2024-08-25 00:59 | disposition home or self-care (01) ==
PROVIDERS: Emergency Provider Emergency Medicine
DX: R20.3 Hyperesthesia (principal); M79.642 Pain in left hand; M25.532 Pain in left wrist
CPT/HCPCS: 73120; 96372; 99283; J1885

== ENCOUNTER 2024-12-14 18:07 | Emergency (ER) | payer SELFPAY ==
[2024-12-14 18:08] VITALS: BP 136/104; PULSE 108; RESP 18; TEMP 37.7; O2SAT 95; BMI 30.1
--- NOTE | 2024-12-14 18:12 | ED_ITS ---
Discharge Plan Disposition Patient Disposition: Home, Self-Care Condition: Good Prescriptions Prescriptions: New oseltamivir [Tamiflu] 75 mg capsule 75 mg PO BID 5 Days Qty: 10 0RF prednisone 50 mg tablet 50 mg PO DAILY 5 Days Qty: 5 0RF albuterol sulfate 90 mcg/actuation HFA aerosol inhaler 1 inh inhalation Q4H PRN (Reason: shortness of breath or wheezing) Qty: 8.5 0RF vlxjoivnyfdwkli-kgtdykhwn-QQ [Bromfed DM] 2-30-10 mg/5 mL syrup 5 ml PO Q4H PRN (Reason: sinus symptoms) Qty: 118 0RF ondansetron 4 mg tablet,disintegrating 4 mg PO QID PRN (Reason: nausea and vomiting) Qty: 10 0RF Referrals Follow up/Referrals: Kareem Trimble MD [Physician] - See instructions Activity Restrictions/Add. Instructions Additional Instructions/Restrictions: I sent medications into your pharmacy. Please take your steroids and Tamiflu till its gone. I have referred you to pulmonology as you likely have undiagnosed COPD. Please call to make your appointment in the morning. If you have continuing new or worsening signs or symptoms follow-up with your PCP or return to the ER as needed. Clinical Impressions Clinical Impression: Influenza A, COPD exacerbation Print Language Print Language: Tajik Discharge ED Provider: Anthony Tidwell General Adult HPI <LEEANN Ruelas - Last Filed: 12/14/24 19:54> General Chief complaint: Upper Respiratory Infection Stated complaint: V/D,fever,sore throat Time Seen by Provider: 12/14/24 18:11 History of Present Illness HPI narrative: Patient presents for evaluation of cough congestion fever nausea vomiting diarrhea. Patient states her symptoms began 3 days ago and have continued to progress. Her worst symptom is cough however she has had nausea vomiting triggered by the protracted coughing as well as loose stool that began today. She denies any chest pain hemoptysis hematochezia melena hematemesis hematuria. Patient was a former smoker as of 3 days ago but was smoking a pack a day prior to that Related Data Previous Rx's ?Medication ?Instructions ?Recorded albuterol sulfate 90 mcg/actuation 1 inh inhalation Q4H PRN shortness 12/14/24 aerosol inhaler of breath or wheezing #8.5 grams baoeefkmxmsdmjp-ncgkwdquzkhazky-NR 5 ml PO Q4H PRN sinus symptoms 12/14/24 2 mg-30 mg-10 mg/5 mL oral syrup #118 mL (Bromfed DM) ondansetron 4 mg disintegrating 4 mg PO QID PRN nausea and 12/14/24 tablet vomiting #10 tabs oseltamivir 75 mg capsule (Tamiflu) 75 mg PO BID 5 days #10 caps 12/14/24 prednisone 50 mg tablet 50 mg PO DAILY 5 days #5 tabs 12/14/24 Allergies Allergy/AdvReac Type Severity Reaction Status Date / Time droperidol (From INAPSINE) Allergy Intermediate Respiratory Verified 07/03/21 09:07 Issues diphenhydramine (From Allergy Mild Verified 07/03/21 09:07 BENADRYL) cyclobenzaprine (From Allergy Unknown UNKNOWN Verified 07/03/21 09:07 FLEXERIL) nut - unspecified Allergy Swelling Verified 05/10/24 16:12 of Lip/Tongue/Throat [facility] <LEEANN Ruelas - Last Filed: 12/14/24 19:54> [facility] Disclaimer: The information contained in this section may have been updated after the patient was seen, as this information can be updated by other users. Medical History (Updated 12/14/24 @ 19:02 by LEEANN Ruelas) Liver disease Anxiety Migraine Surgical History (Updated 05/10/24 @ 16:13 by Kristy Marshall RN) History of section History of hysterectomy Social History Smoking Status: Current every day smoker tobacco type: cigarettes packs per day: 0 alcohol intake: never substance use type: marijuana current occupational status: disabled Travel in the last 8 weeks: None household members: spouse housing: house Have you lived/traveled outside [place] in past 30 days?: No Contact w/someone who lives/traveled outside US past 30 days?: No Exposure to someone with infectious disease in past 14 days?: No Do you have a fever (greater than 100.4 F or 38 C)?: Yes Have you tested positive for COVID-19: No Exposed to someone with COVID-19 in past 14 days?: No Do you have a sore throat?: Yes Do you have a cough?: No Do you have any weakness?: No Do you have any diarrhea?: Yes Are you experiencing any unusual bleeding?: No Do you have any muscle aches/pain?: No Do you have any abdominal pain?: No Are you experiencing loss of taste or smell?: No Other Medical History Have you received the Flu Vaccine for this season: No Have you received the Pneumonia Vaccine: No <LEEANN Ruelas - Last Filed: 12/14/24 19:54> ROS Obtained: Yes Systems reviewed as appropriate & no additional complaints except as documented Physical Exam <LEEANN Ruelas - Last Filed: 12/14/24 19:54> General General appearance: alert and in no apparent distress Respiratory Respiratory exam: Present wheezes; Absent normal lung sounds bilaterally or respiratory distress Cardiovascular Cardiovascular exam: Present regular rate Neurological Exam Neurological exam: Present alert and oriented X3 Medical Decision Making <LEEANN Ruelas - Last Filed: 12/14/24 19:54> Medical Records Medical records reviewed: Yes I reviewed the patient's medical records. Screening: Per USPSTF and CDC recommendations, given the prevalence of disease in our region, it is our hospital?s policy to screen for HIV and viral Hepatitis for all patients aged 18 and over and those with ongoing risk factors. Dino Inquiry Pt receiving controlled substance: No Vital Signs: 12/14/24 18:08 12/14/24 18:18 12/14/24 18:30 Temperature 99.9 F H Temperature Source Oral Pulse Rate 102 H 108 H Pulse Rate [Radial] 108 H Respiratory Rate 18 Blood Pressure 187/105 H Blood Pressure [Right Arm] 136/104 H Blood Pressure Mean [Right Arm] 114 Blood Pressure Source Blood Pressure Source [Right Arm] Automatic Cuff Blood Pressure Position Blood Pressure Position [Right Arm] Sitting 02 Sat by Pulse Oximetry 95 92 L 93 L Oxygen Delivery Method Room Air Room Air 12/14/24 19:30 12/14/24 20:01 12/14/24 20:21 Temperature 99.0 F Temperature Source Oral Pulse Rate 99 H 105 H 92 H Pulse Rate [Radial] Respiratory Rate 20 Blood Pressure 147/73 H 133/72 133/72 Blood Pressure [Right Arm] Blood Pressure Mean [Right Arm] Blood Pressure Source Automatic Cuff Blood Pressure Source [Right Arm] Blood Pressure Position Sitting Blood Pressure Position [Right Arm] 02 Sat by Pulse Oximetry 97 91 L Oxygen Delivery Method Room Air Lab Data Lab results reviewed: Yes I reviewed the patient's lab results. Lab Results 12/14/24 18:16: SARS-CoV-2 (PCR) Not detected, Influenza A Untype (PCR) Detected A, Influenza Type B (PCR) Not detected 12/14/24 18:33: WBC 6.0, RBC 4.78, Hgb 14.4, Hct 42.4, MCV 88.7, MCH 30.1, MCHC 34.0, RDW 11.7, Plt Count 244, MPV 10.6 H, Neut % (Auto) 72.0, Lymph % (Auto) 14.4, Polk % (Auto) 13.1 H, Eos % (Auto) 0.0 L, Baso % (Auto) 0.3, Neut # (Auto) 4.3, Lymph # (Auto) 0.9, Polk # (Auto) 0.8, Eos # (Auto) 0.0, Baso # (Auto) 0.0, PT 10.9, INR 0.97, Sodium 136, Potassium 3.6, Chloride 99, Carbon Dioxide 26, Anion Gap 14.6, BUN 9, Creatinine 0.90, Estimated Creat Clear 83, Estimated GFR 64, Est GFR ( Amer) 78, Glucose 127 H, Calcium 9.1, Magnesium 1.5 L, Total Bilirubin 0.5, AST 65 H, ALT 44, Alkaline Phosphatase 78, Troponin I < 0.01, Total Protein 7.0, Albumin 4.8, Globulin 2.2, Albumin/Globulin Ratio 2.2 H , Procalcitonin 0.098, HCV Ab MABEL w/Rflx PCR Qn Negative, HIV Ag/Ab Combo Qual Negative 12/14/24 18:34: VBG pH 7.41, VBG pCO2 38.8, VBG pO2 53.7 H, VBG HCO3 23.8, VBG Total CO2 25.0, VBG O2 Saturation 89.2 H, VBG Base Excess -0.9, VBG Lactic Acid 1.3 12/14/24 18:33 12/14/24 18:33 Orders (Tests/Meds): ED MEDICATIONS Discontinued Medications Generic Name Dose Route Start Last Admin Trade Name Freq PRN Reason Stop Dose Admin Acetaminophen 1,000 mg 12/14/24 18:18 12/14/24 18:47 Acetaminophen 500mg Tab PO 12/14/24 18:19 1,000 mg ONCE ONE Administration Albuterol/Ipratropium 3 ml 12/14/24 18:18 12/14/24 18:27 Ipratropium/Albuterol 3 Ml [facility] 12/14/24 18:19 Not Given ONCE ONE Albuterol/Ipratropium 9 ml 12/14/24 18:18 12/14/24 18:47 Ipratropium/Albuterol 3 Ml [facility] 12/14/24 18:19 9 ml ONCE ONE Administration Dexamethasone Sodium Phosphate 10 mg 12/14/24 18:18 12/14/24 18:46 Dexamethasone 4mg/Ml 5ml Mdv IV 12/14/24 18:19 10 mg ONCE ONE Administration Sodium Chloride 1,000 mls @ 999 mls/hr 12/14/24 18:18 12/14/24 18:46 Sod Chlor 0.9% 1000ml Bag IV 12/14/24 19:18 999 mls/hr .Q1H1M ONE Administration Magnesium Sulfate 2 gm in 50 mls @ 50 mls/hr 12/14/24 18:32 12/14/24 18:45 Magnesium Sulfate 2gm/50ml Premix IV 12/14/24 19:31 50 mls/hr ONCE ONE Administration Ketorolac Tromethamine 15 mg 12/14/24 18:18 12/14/24 18:46 Ketorolac 30mg/Ml Vial IV 12/14/24 18:19 15 mg ONCE ONE Administration Ondansetron HCl 4 mg 12/14/24 18:18 12/14/24 18:46 Ondansetron 4mg/2ml Vial IV 12/14/24 18:19 4 mg ONCE ONE Administration Oseltamivir Phosphate 75 mg 12/14/24 19:02 12/14/24 19:17 Oseltamivir 75mg Capsule PO 12/14/24 19:03 75 mg ONCE ONE Administration ORDERS Category Date Time Status Chest XR 2 view (NOT portable) [XR chest 2V] Stat Exams 12/14/24 18:18 Completed CBC w/Auto Diff [Complete Blood Count Auto Diff] Stat Lab 12/14/24 18:33 Completed CMP [Comprehensive Metabolic Panel] Stat Lab 12/14/24 18:33 Completed HIV Combo Stat Lab 12/14/24 18:33 Completed Hepatitis C Ab Qual. W/ RFX Stat Lab 12/14/24 18:33 Completed INR [Prothrombin Time INR] Stat Lab 12/14/24 18:33 Completed Magnesium Stat Lab 12/14/24 18:33 Completed Procalcitonin Stat Lab 12/14/24 18:33 Completed Rapid PCR Covid and Flu A/B Stat Lab 12/14/24 18:16 Completed Trop I [Troponin I] Stat Lab 12/14/24 18:33 Completed VBG [Venous Blood Gas] Stat RT 12/14/24 18:34 Completed Medical Decision Narrative: In summary patient is a 59-year-old female who presents to the emergency department for evaluation of cough congestion fever nausea vomiting diarrhea. Patient is hypertensive on arrival with a blood pressure 136/104 tachycardic at 108 with sinus tachycardia on bedside monitor breathing 18 times a minute but satting at 95% on room air upon arrival, febrile at 99.9. Physical exam is remarkable for end expiratory wheezes in all 4 chacko however breath sounds heard to bases and she has no increased work of breathing or accessory muscle use. The remainder of her physical exam is unremarkable nonfocal. Differential diagnosis includes COPD exacerbation versus viral versus bacterial respiratory tract infection etc. Initial workup will be conducted with hematologic labs respiratory swabs twelve-lead EKG plain film chest x-ray. Initial interventions include IV magnesium Tylenol DuoNeb Decadron Toradol. Initial workup reviewed by me shows a her hematologic labs are nonactionable except for magnesium of 1.5 which is already been repleted IV and my informal interpretation of her plain film chest x-ray shows chronic changes however no acute infiltrates prior to radiology read and her influenza swab is positive for influenza A. Upon repeat evaluation patient reported significant improvement after initial intervention. Given this patient is appropriate for discharge with prescription for Tamiflu with first dose given here, steroids Bromfed a rescue inhaler and Zofran. Patient also being referred to pulmonology for COPD DENG <Anthony Tidwell MD - Last Filed: 12/14/24 21:21> Vital Signs: 12/14/24 18:08 12/14/24 18:18 12/14/24 18:30 Temperature 99.9 F H Temperature Source Oral Pulse Rate 102 H 108 H Pulse Rate [Radial] 108 H Respiratory Rate 18 Blood Pressure 187/105 H Blood Pressure [Right Arm] 136/104 H Blood Pressure Mean [Right Arm] 114 Blood Pressure Source Blood Pressure Source [Right Arm] Automatic Cuff Blood Pressure Position Blood Pressure Position [Right Arm] Sitting 02 Sat by Pulse Oximetry 95 92 L 93 L Oxygen Delivery Method Room Air Room Air 12/14/24 19:30 12/14/24 20:01 12/14/24 20:21 Temperature 99.0 F Temperature Source Oral Pulse Rate 99 H 105 H 92 H Pulse Rate [Radial] Respiratory Rate 20 Blood Pressure 147/73 H 133/72 133/72 Blood Pressure [Right Arm] Blood Pressure Mean [Right Arm] Blood Pressure Source Automatic Cuff Blood Pressure Source [Right Arm] Blood Pressure Position Sitting Blood Pressure Position [Right Arm] 02 Sat by Pulse Oximetry 97 91 L Oxygen Delivery Method Room Air Lab Data Lab Results 12/14/24 18:16: SARS-CoV-2 (PCR) Not detected, Influenza A Untype (PCR) Detected A, Influenza Type B (PCR) Not detected 12/14/24 18:33: WBC 6.0, RBC 4.78, Hgb 14.4, Hct 42.4, MCV 88.7, MCH 30.1, MCHC 34.0, RDW 11.7, Plt Count 244, MPV 10.6 H, Neut % (Auto) 72.0, Lymph % (Auto) 14.4, Polk % (Auto) 13.1 H, Eos % (Auto) 0.0 L, Baso % (Auto) 0.3, Neut # (Auto) 4.3, Lymph # (Auto) 0.9, Polk # (Auto) 0.8, Eos # (Auto) 0.0, Baso # (Auto) 0.0, PT 10.9, INR 0.97, Sodium 136, Potassium 3.6, Chloride 99, Carbon Dioxide 26, Anion Gap 14.6, BUN 9, Creatinine 0.90, Estimated Creat Clear 83, Estimated GFR 64, Est GFR ( Amer) 78, Glucose 127 H, Calcium 9.1, Magnesium 1.5 L, Total Bilirubin 0.5, AST 65 H, ALT 44, Alkaline Phosphatase 78, Troponin I < 0.01, Total Protein 7.0, Albumin 4.8, Globulin 2.2, Albumin/Globulin Ratio 2.2 H , Procalcitonin 0.098, HCV Ab MABEL w/Rflx PCR Qn Negative, HIV Ag/Ab Combo Qual Negative 12/14/24 18:34: VBG pH 7.41, VBG pCO2 38.8, VBG pO2 53.7 H, VBG HCO3 23.8, VBG Total CO2 25.0, VBG O2 Saturation 89.2 H, VBG Base Excess -0.9, VBG Lactic Acid 1.3 Orders (Tests/Meds): ED MEDICATIONS Discontinued Medications Generic Name Dose Route Start Last Admin Trade Name Julio Cesarq PRN Reason Stop Dose Admin Acetaminophen 1,000 mg 12/14/24 18:18 12/14/24 18:47 Acetaminophen 500mg Tab PO 12/14/24 18:19 1,000 mg ONCE ONE Administration Albuterol/Ipratropium 3 ml 12/14/24 18:18 12/14/24 18:27 Ipratropium/Albuterol 3 Ml [facility] 12/14/24 18:19 Not Given ONCE ONE Albuterol/Ipratropium 9 ml 12/14/24 18:18 12/14/24 18:47 Ipratropium/Albuterol 3 Ml [facility] 12/14/24 18:19 9 ml ONCE ONE Administration Dexamethasone Sodium Phosphate 10 mg 12/14/24 18:18 12/14/24 18:46 Dexamethasone 4mg/Ml 5ml Mdv IV 12/14/24 18:19 10 mg ONCE ONE Administration Sodium Chloride 1,000 mls @ 999 mls/hr 12/14/24 18:18 12/14/24 18:46 Sod Chlor 0.9% 1000ml Bag IV 12/14/24 19:18 999 mls/hr .Q1H1M ONE Administration Magnesium Sulfate 2 gm in 50 mls @ 50 mls/hr 12/14/24 18:32 12/14/24 18:45 Magnesium Sulfate 2gm/50ml Premix IV 12/14/24 19:31 50 mls/hr ONCE ONE Administration Ketorolac Tromethamine 15 mg 12/14/24 18:18 12/14/24 18:46 Ketorolac 30mg/Ml Vial IV 12/14/24 18:19 15 mg ONCE ONE Administration Ondansetron HCl 4 mg 12/14/24 18:18 12/14/24 18:46 Ondansetron 4mg/2ml Vial IV 12/14/24 18:19 4 mg ONCE ONE Administration Oseltamivir Phosphate 75 mg 12/14/24 19:02 12/14/24 19:17 Oseltamivir 75mg Capsule PO 12/14/24 19:03 75 mg ONCE ONE Administration ORDERS Category Date Time Status Chest XR 2 view (NOT portable) [XR chest 2V] Stat Exams 12/14/24 18:18 Completed CBC w/Auto Diff [Complete Blood Count Auto Diff] Stat Lab 12/14/24 18:33 Completed CMP [Comprehensive Metabolic Panel] Stat Lab 12/14/24 18:33 Completed HIV Combo Stat Lab 12/14/24 18:33 Completed Hepatitis C Ab Qual. W/ RFX Stat Lab 12/14/24 18:33 Completed INR [Prothrombin Time INR] Stat Lab 12/14/24 18:33 Completed Magnesium Stat Lab 12/14/24 18:33 Completed Procalcitonin Stat Lab 12/14/24 18:33 Completed Rapid PCR Covid and Flu A/B Stat Lab 12/14/24 18:16 Completed Trop I [Troponin I] Stat Lab 12/14/24 18:33 Completed VBG [Venous Blood Gas] Stat RT 12/14/24 18:34 Completed Medical Decision Narrative: In summary patient is a 59-year-old female who presents to the emergency department for evaluation of cough congestion fever nausea vomiting diarrhea. Patient is hypertensive on arrival with a blood pressure 136/104 tachycardic at 108 with sinus tachycardia on bedside monitor breathing 18 times a minute but satting at 95% on room air upon arrival, febrile at 99.9. Physical exam is remarkable for end expiratory wheezes in all 4 chacko however breath sounds heard to bases and she has no increased work of breathing or accessory muscle use. The remainder of her physical exam is unremarkable nonfocal. Differential diagnosis includes COPD exacerbation versus viral versus bacterial respiratory tract infection etc. Initial workup will be conducted with hematologic labs respiratory swabs twelve-lead EKG plain film chest x-ray. Initial interventions include IV magnesium Tylenol DuoNeb Decadron Toradol. Initial workup reviewed by me shows a her hematologic labs are nonactionable except for magnesium of 1.5 which is already been repleted IV and my informal interpretation of her plain film chest x-ray shows chronic changes however no acute infiltrates prior to radiology read and her influenza swab is positive for influenza A. Upon repeat evaluation patient reported significant improvement after initial intervention. Given this patient is appropriate for discharge with prescription for Tamiflu with first dose given here, steroids Bromfed a rescue inhaler and Zofran. Patient also being referred to pulmonology for COPD DENG I was consulted by the MELYSSA, and we discussed the complexity of the problems being addressed. I approved the treatment and management plan for this patient's care in the Emergency Department, thus performing a substantive portion of the medical decision making. Anthony Tidwell MD Critical Care <LEEANN Ruelas - Last Filed: 12/14/24 19:54> Critical Care Time Critical Care Time: Yes Attestation: On 12/14/24, the high probability of a clinically significant, sudden or life threatening deterioration of the following system(s) required my full and direct attention, intervention and personal management. The time I documented below is in addition to time spent performing reported procedures but includes the following listed in this critical care notation. Total Time Total Critical Care Time: 35
[2024-12-14 18:18] VITALS: PULSE 102; O2SAT 92
--- NOTE | 2024-12-14 18:18 | XR_ITS ---
PROCEDURE INFORMATION: Exam: XR Chest Exam date and time: 12/14/2024 6:30 PM Age: 59 years old Clinical indication: Cough and fever TECHNIQUE: Imaging protocol: Radiologic exam of the chest. Views: 2 views. COMPARISON: CR XR THORACIC SPINE 3V 02/11/2023 3:48 AM FINDINGS: Lungs: Central opacities with peribronchial cuffing, seen to advantage on the lateral chest radiograph. Pleural spaces: Unremarkable. No pleural effusion. No pneumothorax. Heart/Mediastinum: Unremarkable. No cardiomegaly. Bones/joints: Unremarkable. IMPRESSION: Combination of findings that suggests viral process versus reactive airways without evidence of consolidation.
[2024-12-14 18:20] LABS: Coronavirus 19, PCR Not Detected (NotDetected); Influenza B, PCR Not Detected (NotDetected)
[2024-12-14 18:30] VITALS: BP 187/105; PULSE 108; O2SAT 93
--- NOTE | 2024-12-14 18:34 | PC.NURSE ---
respiratory aware of vbg
--- NOTE | 2024-12-14 18:34 | PC.NURSE ---
blood work sent to lab
[2024-12-14 18:41] LABS: Basophils % 0.3 % (0.1-2.0); Hematocrit 42.4 % (37.0-47.0); Hemoglobin 14.4 g/dL (12.2-16.2); Lymphocytes # 0.9 K/mm3 (0.7-4.5); Lymphocytes % 14.4 % (10-50); Mean Corpuscular Hemoglobin 30.1 pg (27.0-31.2); Mean Corpuscular Volume 88.7 fl (81-99); Mean Platelet Volume 10.6 fl (7.4-10.4); Monocytes # 0.8 K/mm3 (0.1-1.0); Monocytes % 13.1 % (1.7-9.3); Neutrophils # 4.3 K/mm3 (1.8-7.8); Platelet Count 244 K/mm3 (142-424); Red Blood Count 4.78 M/mm3 (4.20-5.40); Red Cell Distribution Width 11.7 % (11.5-17.5)
[2024-12-14 18:44] LABS: Lactate Venous 1.3 mmol/L (0.4-2.0); VBG Base Excess -0.9 mmol/L (-2.4-2.3); VBG HCO3 23.8 mmol/L (23-30); VBG Oxygen Saturation 89.2 % (50-70); VBG PCO2 38.8 mmol/L (35-51); VBG PH 7.41 mmol/L (7.31-7.41); VBG PO2 53.7 mmol/L (28-40)
[2024-12-14] MEDS: MAGNESIUM SULFATE IN WATER 2 GM/50 ML PIGGYBACK IV (18:45)
[2024-12-14] MEDS: KETOROLAC 30MG/ML VIAL 15 MG IV (18:46)
[2024-12-14] MEDS: ONDANSETRON 4MG/2ML VIAL 4 MG IV (18:46)
[2024-12-14] MEDS: 0.9 % SODIUM CHLORIDE 1000ML 1,000 ML 999 ML IV (18:46)
[2024-12-14] MEDS: DEXAMETHASONE 4MG/ML 5ML MDV 10 MG IV (18:46)
[2024-12-14 18:47] LABS: Influenza A, PCR Detected (NotDetected)
[2024-12-14] MEDS: IPRATROPIUM/ALBUTEROL 3 ML NEB 9 ML IH (18:47)
[2024-12-14] MEDS: ACETAMINOPHEN 500MG TAB 1000 MG PO (18:47)
[2024-12-14 18:54] LABS: Alanine Aminotransferase 44 U/L (12-78); Albumin Level 4.8 g/dl (3.5-5.0); Albumin/Globulin Ratio 2.2 (1.1-1.8); Alkaline Phosphatase 78 U/L (38-126); Anion Gap 14.6 mEq/L (5-15); Aspartate Amino Transferase 65 U/L (14-36); Bilirubin,Total 0.5 mg/dl (0.2-1.3); Blood Urea Nitrogen 9 mg/dl (7-17); Calcium 9.1 mg/dl (8.4-10.2); Carbon Dioxide 26 mmol/L (22.0-30.0); Chloride 99 mmol/L (98-107); Creatinine Clearance Estimated 83 mL/min (50-200); Estimated Glomerular Filt Rate 64 ml/min (>60); GFR (African American) 78 ML/MIN (>60); Globulin 2.2 g/dL (1.3-3.2); Glucose 127 mg/dl (74-100); Potassium 3.6 mmoL/L (3.5-5.1); Sodium 136 mmol/L (136-145)
[2024-12-14 18:55] LABS: INR 0.97 (0.9-1.1); Prothrombin Time 10.9 seconds (10.1-12.5)
--- NOTE | 2024-12-14 19:00 | PC.NURSE ---
Report received from Itzel ANA Pt resting quietly in bed
[2024-12-14 19:09] LABS: Magnesium 1.5 mg/dl (1.6-2.3)
[2024-12-14 19:12] LABS: Troponin I < 0.01 ng/ml (0.00-0.034)
[2024-12-14] MEDS: OSELTAMIVIR 75MG CAPSULE 75 MG PO (19:17)
[2024-12-14 19:30] VITALS: BP 147/73; PULSE 99; O2SAT 97
[2024-12-14 19:48] LABS: Procalcitonin 0.098 ng/mL (0.0-2.0)
[2024-12-14 19:51] LABS: HIV Combo NEGATIVE (Negative)
[2024-12-14 19:59] LABS: Hepatitis C Ab Qual. W/ RFX NEGATIVE (Negative)
[2024-12-14 20:01] VITALS: BP 133/72; PULSE 105; O2SAT 91
[2024-12-14 20:21] VITALS: BP 133/72; PULSE 92; RESP 20; TEMP 37.2; O2SAT 96
== END 2024-12-14 20:22 | disposition home or self-care (01) ==
PROVIDERS: Physician Assistant; Emergency Provider Emergency Medicine
DX: J44.1 Chronic obstructive pulmonary disease with (acute) exacerbation (principal); J10.1 Influenza due to other identified influenza virus with other respiratory manifestations; R50.9 Fever, unspecified; R05.9 Cough, unspecified; R09.81 Nasal congestion; R11.2 Nausea with vomiting, unspecified; R19.7 Diarrhea, unspecified; Z87.891 Personal history of nicotine dependence
CPT/HCPCS: 71046; 80053; 82803; 83735; 84145; 84484; 85025; 85610; 86803; 87389; 87636; 96361; 96365; 96374; 96375; 99291; J1100; J1885; J2405; J3475; J7030; J7620